=== PATIENT | female | born 1960 | race Caucasian/White ===

== ENCOUNTER 2017-02-15 23:39 | Inpatient (IN) | payer SELFPAY ==
[~2017-02-15] VITALS: Ht 172.7 cm; Wt 93.6 kg
[2017-02-16] MEDS: fentaNYL PF VIAL 100 MCG/2 ML VIAL IV PRN ×2 (00:19→01:49)
[2017-02-16] MEDS ORDERED: IV NORMAL SALINE 1000ML BAG 1,000 ML IV SCH (00:30)
[2017-02-16] MEDS ORDERED: ONDANSETRON PF 4 MG/2 ML VIAL. IV ONE (00:30)
[2017-02-16] MEDS ORDERED: FAMOTIDINE 20 MG/2 ML VIAL IVP ONE (00:30)
--- NOTE | 2017-02-16 00:51 | RAD ---
INDICATION: RUQ PAIN, PT ATE @7PM, COMPARISON: None. TECHNIQUE: Grayscale and color ultrasound images obtained through the abdomen. FINDINGS: Aorta/IVC: Incomplete visualization Pancreas: Largely obscured Liver: Mildly echogenic. Gallbladder: Gallstones are visualized Common Bile Duct: 9 mm Right Kidney: No hydronephrosis. IMPRESSION: There are some filling defects within the gallbladder which could be from gallstones. There is also mild dilation of the common bile duct. Distal obstructive process such as a stone or stricture is not excluded given the dilatation. If more complete characterization is desired MRCP could further evaluate. Liver is mildly echogenic. Nonspecific but can be seen with fatty infiltration. Electronically signed by: Frank Maddox MD (02/16/2017 12:48 AM) [id number]
[2017-02-16 00:56] LABS: BASO % 0 % (0-3); EOS % 2 % (0-3); HEMATOCRIT 38.7 % (36.0-47.0); HEMOGLOBIN 13.1 g/dL (12.0-15.5); LYMPH # 1.3 x10^3/uL (1.0-4.8); LYMPH % 16 % (24-48); MEAN CORPUSCULAR HEMOGLOBIN 30 pg (25-35); MEAN CORPUSCULAR HGB CONC 34 g/dL (31-37); MEAN CORPUSCULAR VOLUME 88 fL (79-100); MONO % 4 % (0-9); NEUT % 78 % (31-73); PLATELET COUNT 243 x10^3/uL (140-400); RED BLOOD COUNT 4.41 x10^6/uL (3.50-5.40); RED CELL DISTRIBUTION WIDTH 13.6 % (11.5-14.5)
--- NOTE | 2017-02-16 00:56 | PHYS DOC ---
Past Medical History Past Medical History: Diabetes-Type II, High Cholesterol, Hypertension, Hypothyroid Past Surgical History: Hysterectomy, Other Additional Past Surgical Histo: cardiac ablation Alcohol Use: None Drug Use: None Adult General Chief Complaint Chief Complaint: ABDOMINAL PAIN HPI HPI Patient is a 56 year old female who presents with complaint of epigastric and right upper quadrant abdominal pain. Patient states her symptoms started suddenly tonight after eating. Patient states that she ate at 5:30 PM this evening. Approximately one hour afterwards she started having heartburn symptoms. Patient states that she took Tums with mild relief. Patient states that one to 2 hours later she started having worsening symptoms and took 2 more times. Patient states that she did not get any relief. Approximately 30 minutes prior to arrival the patient started having worsening severe symptoms. Patient states that she was doubling over due to her pain. Patient rated as 10 out of 10 prior to arrival. Patient states currently is 8 out of 10 this patient was given fentanyl by EMS. The patient states that the pain is sharp and located in her upper abdomen and right upper quadrant. Patient denies any history of similar symptoms. Patient has history of diabetes mellitus type 2, hypertension , and hypothyroidism. Patient has had nausea but no vomiting associated with symptoms. Review of Systems Review of Systems Constitutional: Denies fever or chills [] Eyes: Denies change in visual acuity, redness, or eye pain [] HENT: Denies nasal congestion or sore throat [] Respiratory: Denies cough or shortness of breath [] Cardiovascular: Denies chest pain or edema [] GI: Abdominal pain, nausea, denies vomiting, bloody stools or diarrhea [] : Denies dysuria or hematuria [] Musculoskeletal: Denies back pain or joint pain [] Integument: Denies rash or skin lesions [] Neurologic: Denies headache, focal weakness or sensory changes [] Current Medications Current Medications Current Medications Medications (Trade) Dose Ordered Sig/Mary Start Time Stop Time Status Last Admin Dose Admin Famotidine (Pepcid) 20 mg 1X ONCE 02/16/17 00:30 02/16/17 00:31 DC 02/16/17 00:19 20 MG Fentanyl Citrate (Fentanyl 2ml Vial) 50 mcg PRN Q15MIN PRN 02/16/17 00:15 02/17/17 00:14 02/16/17 01:49 50 MCG Ondansetron HCl (Zofran) 4 mg 1X ONCE 02/16/17 00:30 02/16/17 00:31 DC 02/16/17 00:19 4 MG Sodium Chloride 1,000 ml @ 1,000 mls/hr Q1H 02/16/17 00:30 02/16/17 01:29 DC 02/16/17 00:19 1,000 MLS/HR Allergies Allergies Allergies Coded Allergies Type Severity Reaction Last Updated Verified No Known Drug Allergies 02/15/17 No Physical Exam Physical Exam Constitutional: Alert, afebrile, appears in moderate discomfort. [] HENT: Normocephalic, atraumatic, bilateral external ears normal, oropharynx moist, no oral exudates, nose normal. [] Eyes: PERRLA, EOMI, conjunctiva normal, no discharge. [] Neck: Normal range of motion, no tenderness, supple, no stridor. [] Cardiovascular:Heart rate regular rhythm, no murmur [] Lungs & Thorax: Bilateral breath sounds clear to auscultation [] Abdomen: Bowel sounds normal, soft, right upper quadrant tenderness to palpation with mild guarding, no rebound tenderness, no masses, no pulsatile masses. [] Skin: Warm, dry, no erythema, no rash. [] Back: No tenderness, no CVA tenderness. [] Extremities: No tenderness, no cyanosis, no clubbing, ROM intact, no edema. [] Neurologic: Alert and oriented X 3, normal motor function, normal sensory function, no focal deficits noted. [] Current Patient Data Vital Signs Vital Signs Date Time Temp Pulse Resp B/P (MAP) Pulse Ox O2 Delivery O2 Flow Rate FiO2 02/16/17 01:14 75 14 128/60 (82) 96 Room Air 02/15/17 23:40 97.3 97.3 Lab Values Laboratory Tests Test 02/16/17 00:01 02/16/17 00:05 Urine Collection Type Unknown Urine Color Yellow Urine Clarity Clear Urine pH 6.0 Urine Specific [place] >=1.030 Urine Protein Negative mg/dL (NEG-TRACE) Urine Glucose (UA) >=1000 mg/dL (NEG) Urine Ketones (Stick) Negative mg/dL (NEG) Urine Blood Negative (NEG) Urine Nitrite Negative (NEG) Urine Bilirubin Negative (NEG) Urine Urobilinogen Dipstick 0.2 mg/dL (0.2 mg/dL) Urine Leukocyte Esterase Small (NEG) Urine RBC Occ /HPF (0-2) Urine WBC 20-40 /HPF (0-4) Urine Squamous Epithelial Cells Mod /LPF Urine Bacteria Few /HPF (0-FEW) Urine Mucus Mod /LPF White Blood Count 8.0 x10^3/uL (4.0-11.0) Red Blood Count 4.41 x10^6/uL (3.50-5.40) Hemoglobin 13.1 g/dL (12.0-15.5) Hematocrit 38.7 % (36.0-47.0) Mean Corpuscular Volume 88 fL (79-100) Mean Corpuscular Hemoglobin 30 pg (25-35) Mean Corpuscular Hemoglobin Concent 34 g/dL (31-37) Red Cell Distribution Width 13.6 % (11.5-14.5) Platelet Count 243 x10^3/uL (140-400) Neutrophils (%) (Auto) 78 % (31-73) H Lymphocytes (%) (Auto) 16 % (24-48) L Monocytes (%) (Auto) 4 % (0-9) Eosinophils (%) (Auto) 2 % (0-3) Basophils (%) (Auto) 0 % (0-3) Neutrophils # (Auto) 6.2 x10^3uL (1.8-7.7) Lymphocytes # (Auto) 1.3 x10^3/uL (1.0-4.8) Monocytes # (Auto) 0.3 x10^3/uL (0.0-1.1) Eosinophils # (Auto) 0.1 x10^3/uL (0.0-0.7) Basophils # (Auto) 0.0 x10^3/uL (0.0-0.2) Sodium Level 139 mmol/L (136-145) Potassium Level 3.6 mmol/L (3.5-5.1) Chloride Level 102 mmol/L (98-107) Carbon Dioxide Level 27 mmol/L (21-32) Anion Gap 10 (6-14) Blood Urea Nitrogen 20 mg/dL (7-20) Creatinine 0.8 mg/dL (0.6-1.0) Estimated GFR (Cockcroft-Gault) 74.2 BUN/Creatinine Ratio 25 (6-20) H Glucose Level 225 mg/dL (70-99) H Calcium Level 10.0 mg/dL (8.5-10.1) Total Bilirubin 0.4 mg/dL (0.2-1.0) Aspartate Amino Transferase (AST) 74 U/L (15-37) H Alanine Aminotransferase (ALT) 59 U/L (14-59) Alkaline Phosphatase 70 U/L (46-116) Total Protein 6.4 g/dL (6.4-8.2) Albumin 3.5 g/dL (3.4-5.0) Albumin/Globulin Ratio 1.2 (1.0-1.7) Lipase 266 U/L (73-393) Laboratory Tests 02/16/17 00:05 Laboratory Tests 02/16/17 00:05 EKG EKG Interpreted by me: Heart rate 77, sinus rhythm, normal intervals, normal axis, no acute ST/T-wave abnormalities present [] Radiology/Procedures Radiology/Procedures [facility] [address] [place] [address] IMAGING REPORT Signed PATIENT: MICK PONCE ACCOUNT: [id number] : 1960 LOCATION: ER AGE: 56 SEX: F EXAM STATUS: REG ER ORD. PHYSICIAN: ALBARO LEW MD REASON: right upper quadrant abdominal pain PROCEDURE: ABDOMEN LTD INDICATION: RUQ PAIN, PT ATE @7PM, COMPARISON: None. TECHNIQUE: Grayscale and color ultrasound images obtained through the abdomen. FINDINGS: Aorta/IVC: Incomplete visualization Pancreas: Largely obscured Liver: Mildly echogenic. Gallbladder: Gallstones are visualized Common Bile Duct: 9 mm Right Kidney: No hydronephrosis. IMPRESSION: There are some filling defects within the gallbladder which could be from gallstones. There is also mild dilation of the common bile duct. Distal obstructive process such as a stone or stricture is not excluded given the dilatation. If more complete characterization is desired MRCP could further evaluate. Liver is mildly echogenic. Nonspecific but can be seen with fatty infiltration. Electronically signed by: Sylvain Hannah MD (02/16/2017 12:48 AM) [id number] DICTATED and SIGNED BY: SYLVAIN HANNAH MD DATE: 02/16/17 0045 CC: ALBARO LEW MD; NO PCP ~ [] Course & Med Decision Making Course & Med Decision Making Pertinent Labs and Imaging studies reviewed. (See chart for details) The patient was given IV fentanyl in the emergency department with temporary relief of symptoms. Patient states however that her pain has come back and is as severe as it was earlier. The patient's ultrasound shows evidence of cholelithiasis and common bile duct dilation suggesting possible choledocholithiasis. Due to persistent pain symptoms, the patient will require admission to the hospital for further treatment. Patient admitted to Dr. Carranza. A consult was placed to Dr. Pond of gastroenterology and Dr. Del Rio of general surgery to follow with patient in hospital. [] Dragon Disclaimer Dragon Disclaimer This electronic medical record was generated, in whole or in part, using a voice recognition dictation system. Departure Departure Impression: Primary Impression: Symptomatic cholelithiasis Additional Impression: Common bile duct dilation Disposition: ADMITTED INPATIENT Admitting Physician: Other Condition: STABLE Referrals: NO PCP (PCP) Problem Qualifiers ALBARO LEW MD Feb 16, 2017 00:56
[2017-02-16 00:58] LABS: BILIRUBIN,URINE NEGATIVE (NEG); GLUCOSE,URINE >=1000 mg/dL (NEG); NITRITE,URINE NEGATIVE (NEG); PROTEIN,URINE NEGATIVE (NEG-TRACE); UROBILINOGEN,URINE 0.2 mg/dL (0.2 mg/dL)
[2017-02-16 01:25] LABS: RBC,URINE OCC /HPF (0-2); WBC,URINE 20-40 /HPF (0-4)
[2017-02-16 01:26] LABS: BACTERIA,URINE FEW /HPF (0-FEW); SQUAMOUS EPITHELIAL CELL,UR MOD /LPF
[2017-02-16 01:38] LABS: CREATININE 0.8 mg/dL (0.6-1.0); GFR 74.2; POTASSIUM 3.6 mmol/L (3.5-5.1)
[2017-02-16 01:44] LABS: ALBUMIN 3.5 g/dL (3.4-5.0); ALBUMIN/GLOBULIN RATIO 1.2 (1.0-1.7); TOTAL BILIRUBIN 0.4 mg/dL (0.2-1.0); TOTAL PROTEIN 6.4 g/dL (6.4-8.2)
[2017-02-16] MEDS ORDERED: MORPHINE SULFATE 4 MG/ML DISP.SYRIN. IV PRN ×2 (02:15→10:30)
[2017-02-16] MEDS ORDERED: ONDANSETRON PF 4 MG/2 ML VIAL. IV PRN ×3 (02:15→11:45)
[2017-02-16 02:25] VITALS: BP 146/69
[2017-02-16] MEDS: IV NORMAL SALINE 1000ML BAG 1,000 ML IV SCH ×3 (02:48→17:34)
[2017-02-16] MEDS ORDERED: METF850T2 PO (03:57)
[2017-02-16] MEDS ORDERED: LOVA20TA2 PO (03:57)
[2017-02-16] MEDS ORDERED: LEVO50TA5 PO (03:57)
[2017-02-16] MEDS ORDERED: LISI10TA2 PO (03:57)
--- NOTE | 2017-02-16 06:57 | EKG ---
[facility] [address] [place] [address] Test Date: 2017-02-15 Test Time: 23:46:52 Pat Name: MICK PONCE Department: Room: 444 1 Gender: F [employer] Operator: : 1960 Requested By: OSIRIS CHAPARRO Order Number: [id number] Reading MD: Measurements Intervals [place] Rate: 77 P: 28 DC: 222 QRS: 4 QRSD: 100 T: 22 QT: 386 QTc: 439 Interpretive Statements SINUS RHYTHM PROLONGED DC INTERVAL QRS(T) CONTOUR ABNORMALITY CONSIDER ANTEROSEPTAL MYOCARDIAL DAMAGE CONSISTENT WITH INFERIOR INFARCT PROBABLY OLD RI6.01 Unconfirmed report No previous ECG available for comparison
[2017-02-16 07:00] VITALS: BP 102/47
--- NOTE | 2017-02-16 09:33 | PDOC2 ---
GI CONSULT Reason For Consult: Cholelithiasis, dilated CBD HPI: HPI: 56 y/o female admitted through ER. Reports acute onset of epigastric and RUQ pain around 7:30 last night. Ate dinner at 5:30, a lot of onions, though indigestion. Symptoms not improved w/ Tums. Associated w/ nausea/retching and a "full" feeling "like needed to burp." Has had some looser stools x 3 days as well. Denies reflux/heartburn, hematochezia, melena, weight loss. No previous EGD, did have normal colonoscopy at age 50. No NSAID use. Labs unremarkable except AST 74. US showed gallstones and CBD of 9mm. PMH: PMH: DM, HTN, HLD, thyroid nodule s/p ablation now w/ hypothyroidism, partial hysterectomy FH: Family History: Cancer (liver - mother, lung - father) Social History: Smoke: <1 pack per day ALCOHOL: none Drugs: None ROS: GEN: Denies fevers, chills, sweats HEENT: Denies blurred vision, sore throat CV: Denies chest pain RESP: Denies shortness of air, cough GI: Per HPI : Denies hematuria, dysuria ENDO: Denies weight changes NEURO: Denies confusion, dizziness MSK: Denies weakness, joint pain/swelling SKIN: Denies jaundice, pruritus Vitals: Vitals: Vital Signs Date Time Temp Pulse Resp B/P (MAP) Pulse Ox O2 Delivery O2 Flow Rate FiO2 02/16/17 07:00 97.9 66 18 102/47 (65) 94 Room Air 97.9 Labs: Labs: Laboratory Tests Test 02/16/17 00:01 02/16/17 00:05 Urine Collection Type Unknown Urine Color Yellow Urine Clarity Clear Urine pH 6.0 Urine Specific [place] >=1.030 Urine Protein Negative mg/dL (NEG-TRACE) Urine Glucose (UA) >=1000 mg/dL (NEG) Urine Ketones (Stick) Negative mg/dL (NEG) Urine Blood Negative (NEG) Urine Nitrite Negative (NEG) Urine Bilirubin Negative (NEG) Urine Urobilinogen Dipstick 0.2 mg/dL (0.2 mg/dL) Urine Leukocyte Esterase Small (NEG) Urine RBC Occ /HPF (0-2) Urine WBC 20-40 /HPF (0-4) Urine Squamous Epithelial Cells Mod /LPF Urine Bacteria Few /HPF (0-FEW) Urine Mucus Mod /LPF White Blood Count 8.0 x10^3/uL (4.0-11.0) Red Blood Count 4.41 x10^6/uL (3.50-5.40) Hemoglobin 13.1 g/dL (12.0-15.5) Hematocrit 38.7 % (36.0-47.0) Mean Corpuscular Volume 88 fL (79-100) Mean Corpuscular Hemoglobin 30 pg (25-35) Mean Corpuscular Hemoglobin Concent 34 g/dL (31-37) Red Cell Distribution Width 13.6 % (11.5-14.5) Platelet Count 243 x10^3/uL (140-400) Neutrophils (%) (Auto) 78 % (31-73) Lymphocytes (%) (Auto) 16 % (24-48) Monocytes (%) (Auto) 4 % (0-9) Eosinophils (%) (Auto) 2 % (0-3) Basophils (%) (Auto) 0 % (0-3) Neutrophils # (Auto) 6.2 x10^3uL (1.8-7.7) Lymphocytes # (Auto) 1.3 x10^3/uL (1.0-4.8) Monocytes # (Auto) 0.3 x10^3/uL (0.0-1.1) Eosinophils # (Auto) 0.1 x10^3/uL (0.0-0.7) Basophils # (Auto) 0.0 x10^3/uL (0.0-0.2) Sodium Level 139 mmol/L (136-145) Potassium Level 3.6 mmol/L (3.5-5.1) Chloride Level 102 mmol/L (98-107) Carbon Dioxide Level 27 mmol/L (21-32) Anion Gap 10 (6-14) Blood Urea Nitrogen 20 mg/dL (7-20) Creatinine 0.8 mg/dL (0.6-1.0) Estimated GFR (Cockcroft-Gault) 74.2 BUN/Creatinine Ratio 25 (6-20) Glucose Level 225 mg/dL (70-99) Calcium Level 10.0 mg/dL (8.5-10.1) Total Bilirubin 0.4 mg/dL (0.2-1.0) Aspartate Amino Transf (AST/SGOT) 74 U/L (15-37) Alanine Aminotransferase (ALT/SGPT) 59 U/L (14-59) Alkaline Phosphatase 70 U/L (46-116) Total Protein 6.4 g/dL (6.4-8.2) Albumin 3.5 g/dL (3.4-5.0) Albumin/Globulin Ratio 1.2 (1.0-1.7) Lipase 266 U/L (73-393) Allergies: Coded Allergies: No Known Drug Allergies (Unverified , 02/15/17) Medications: Current Medications Medications (Trade) Dose Ordered Sig/Mary Route PRN Reason Start Time Stop Time Status Last Admin Dose Admin Fentanyl Citrate (Fentanyl 2ml Vial) 50 mcg PRN Q15MIN PRN IV PAIN GREATER THAN 3/10 02/16/17 00:15 02/17/17 00:14 02/16/17 01:49 Sodium Chloride 1,000 ml @ 1,000 mls/hr Q1H IV 02/16/17 00:30 02/16/17 01:29 DC 02/16/17 00:19 Ondansetron HCl (Zofran) 4 mg 1X ONCE IV 02/16/17 00:30 02/16/17 00:31 DC 02/16/17 00:19 Famotidine (Pepcid) 20 mg 1X ONCE IVP 02/16/17 00:30 02/16/17 00:31 DC 02/16/17 00:19 Sodium Chloride 1,000 ml @ 125 mls/hr Q8H IV 02/16/17 02:30 02/17/17 02:29 02/16/17 02:48 Imaging: Imaging: RUQ US IMPRESSION: There are some filling defects within the gallbladder which could be from gallstones. There is also mild dilation of the common bile duct. Distal obstructive process such as a stone or stricture is not excluded given the dilatation. If more complete characterization is desired MRCP could further evaluate. Liver is mildly echogenic. Nonspecific but can be seen with fatty infiltration. PE: GEN: NAD HEENT: Atraumatic, PERRL LUNGS: CTAB HEART: RRR ABD: NABS, S/ND, not particularly tender currently EXTREMITY: No edema SKIN: No rashes, no jaundice NEURO/PSYCH: A & O 3 A/P: A/P: RUQ/epigastric pain, nausea Cholelithiasis, ?dilated CBD w/ normal LFTs CRC screen -normal colonoscopy age 50 -- Surgery to see. Consider ERCP if abnormal IOC. RICKY ABREU Feb 16, 2017 09:33
[2017-02-16 10:00] VITALS: BP 102/51
[2017-02-16] MEDS ORDERED: hydrALAZINE 20 MG/ML VIAL. IVP PRN (10:30)
[2017-02-16] MEDS ORDERED: traMADol 50 MG TABLET PO PRN (10:30)
[2017-02-16] MEDS ORDERED: ACETAMINOPHEN 325 MG TABLET. PO PRN (10:30)
[2017-02-16] MEDS ORDERED: DOCUSATE SODIUM 100 MG CAPSULE. PO PRN (10:30)
[2017-02-16] MEDS ORDERED: DEXTROSE 50% 25 GM / 50ML DISP.SYRIN. IV PRN ×2 (10:30→16:00)
[2017-02-16] MEDS ORDERED: PIPERACILLIN/TAZOBACTAM 3.375 GM in IV NORMAL SALINE 50ML 50 ML IV ONE (11:30)
[2017-02-16] MEDS: INSULIN ASPART 300 UNITS/3 ML INSULN.PEN SQ SCH ×2 (11:33→17:00)
[2017-02-16] MEDS ORDERED: IV RINGERS,LACTATED 1000ML 1,000 ML IV SCH (11:42)
[2017-02-16] MEDS ORDERED: PROCHLORPERAZINE 10 MG/2 ML VIAL. IV PRN (11:45)
[2017-02-16] MEDS ORDERED: fentaNYL PF VIAL 100 MCG/2 ML VIAL IV PRN ×2 (11:45)
[2017-02-16] MEDS ORDERED: HYDROmorphone 2 MG/ML VIAL IV PRN ×2 (11:45→16:00)
[2017-02-16] MEDS ORDERED: MORPHINE SULFATE 2 MG/ML DISP.SYRIN. IV PRN (11:45)
[2017-02-16] MEDS ORDERED: LIDOCAINE 1% 1 ML SYRINGE. ID PRN (11:45)
[2017-02-16] MEDS ORDERED: fentaNYL PF VIAL 100 MCG/2 ML VIAL ONE ×2 (12:32→14:02)
[2017-02-16] MEDS ORDERED: ROCURONIUM 100 MG/10 ML VIAL. ONE (12:32)
[2017-02-16] MEDS ORDERED: NEOSTIGMINE 10 MG/10 ML VIAL. ONE ×2 (12:33→15:11)
[2017-02-16] MEDS ORDERED: PROPOFOL 20 ML IV ONE (12:33)
[2017-02-16] MEDS ORDERED: DESFLURANE 61 TO 120 MINUTES IH ONE (12:33)
[2017-02-16] MEDS ORDERED: LIDOCAINE 2% PF Vial for OR 5 ML VIAL. ONE (12:34)
[2017-02-16] MEDS ORDERED: DEXAMETHASONE SOD PHOS 20 MG/5 ML VIAL. ONE (12:34)
[2017-02-16] MEDS ORDERED: ONDANSETRON PF 4 MG/2 ML VIAL. ONE (12:34)
--- NOTE | 2017-02-16 13:01 | PDOC1 ---
History and Physical Date of Admission Date of Admission 02/16/17 Identification/Chief Complaint Chief Complaint RUQ pain Problems: Source Source: Chart review, Patient History of Present Illness History of Present Illness HPI HPI Patient is a 56 year old female with HTN, dm2, HYPOthyrodism, came to ER for abd pain x1d. pt never had this pain before. She started to have RUQ pain last night, after eating, with N, no vomiting, also had subjective fever, chills, no T checked. BM usually every other day, now has been having loose BM daily x3ds. The pain feels achy, constant, 10/10, no radiation. US showed cholelithiasis. Past Medical History Past Medical History htn, dm hypothyroidism Past Surgical History Past Surgical History cardiac ablation Past Surgical History: Hysterectomy Family History Family History: Hypertension Social History Smoke: <1 pack per day ALCOHOL: none Drugs: None Current Problem List Problem List Problems Medical Problems: (1) Common bile duct dilation Status: Acute (2) Symptomatic cholelithiasis Status: Acute Current Medications Current Medications Current Medications Medications (Trade) Dose Ordered Sig/Mary Start Time Stop Time Status Last Admin Dose Admin Acetaminophen (Tylenol) 650 mg PRN Q6HRS PRN 02/16/17 10:30 Desflurane (Suprane) 60 ml STK-MED ONCE 02/16/17 12:33 02/16/17 12:34 DC Dexamethasone Sodium Phosphate (Decadron) 20 mg STK-MED ONCE 02/16/17 12:34 02/16/17 12:35 DC Dextrose (Dextrose 50%-Water Syringe) 12.5 gm PRN Q15MIN PRN 02/16/17 10:30 Docusate Sodium (Colace) 100 mg PRN DAILY PRN 02/16/17 10:30 Famotidine (Pepcid) 20 mg QHS 02/16/17 21:00 Fentanyl Citrate (Fentanyl 2ml Vial) 100 mcg STK-MED ONCE 02/16/17 12:32 02/16/17 12:33 DC Hydralazine HCl (Apresoline) 10 mg PRN Q4HRS PRN 02/16/17 10:30 Hydromorphone HCl (Dilaudid) 0.5 mg PRN Q10MIN PRN 02/16/17 11:45 02/17/17 11:44 Insulin Aspart (NovoLOG) 0-9 UNITS TIDWMEALS 02/16/17 12:00 Levothyroxine Sodium 25 mcg/ Sodium Chloride 5 ml @ 100 mls/hr DAILY 02/17/17 09:00 Lidocaine HCl (Lidocaine Pf 2% Vial) 5 ml STK-MED ONCE 02/16/17 12:34 02/16/17 12:35 DC Morphine Sulfate 1 mg PRN Q10MIN PRN 02/16/17 11:45 02/17/17 11:44 Neostigmine Methylsulfate (Bloxiverz) 10 mg STK-MED ONCE 02/16/17 12:33 02/16/17 12:34 DC Ondansetron HCl (Zofran) 4 mg STK-MED ONCE 02/16/17 12:34 02/16/17 12:35 DC Piperacillin Sod/ Tazobactam Sod 3.375 gm/Sodium Chloride 50 ml @ 100 mls/hr 1X ONCE 02/16/17 11:30 02/16/17 11:59 DC 02/16/17 11:30 100 MLS/HR Prochlorperazine Edisylate (Compazine) 5 mg PACU PRN PRN 02/16/17 11:45 02/17/17 11:44 Propofol 20 ml @ As Directed STK-MED ONCE 02/16/17 12:33 02/16/17 12:34 DC Ringer's Solution 1,000 ml @ 30 mls/hr Q24H 02/16/17 11:42 02/16/17 23:41 Rocuronium Almond (Zemuron) 100 mg STK-MED ONCE 02/16/17 12:32 02/16/17 12:33 DC Sodium Chloride 1,000 ml @ 125 mls/hr Q8H 02/16/17 02:30 02/17/17 02:29 02/16/17 10:04 125 MLS/HR Tramadol HCl (Ultram) 50 mg PRN Q6HRS PRN 02/16/17 10:30 Allergies Allergies Allergies Coded Allergies Type Severity Reaction Last Updated Verified No Known Drug Allergies 02/15/17 No ROS Review of System CONSTITUTIONAL: No fever or chills EYES: No recent changes SKIN: No rash or itching CARDIOVASCULAR: No chest pain, syncope, palpitations, or edema RESPIRATORY: No SOB or cough GASTROINTESTINAL: No nausea, vomiting or abdominal pain NEUROLOGICAL: No headaches or weakness ENDOCRINE: No cold or heat intolerance GENITOURINARY: No urgency or frequency of urination MUSCULOSKELETAL: No back pain or joint pain LYMPHATICS: No enlarged lymph nodes PSYCHIATRIC: No anxiety or depression Physical Exam Physical Exam GEN.: No apparent distress. Alert and oriented. HEENT: Head is normocephalic, atraumatic NECK: Supple. LUNGS: Clear to auscultation. HEART: RRR, S1, S2 present. Peripheral pulses intact ABDOMEN: Soft, Positive bowel sounds. RUQ T[place]derness, + wood sign. no guarding or rebound EXTREMITIES: Without any cyanosis. NEUROLOGIC: Normal speech, normal tone PSYCHIATRIC: Normal affect, normal mood. SKIN: No ulcerations Vitals Vitals Vital Signs Date Time Temp Pulse Resp B/P (MAP) Pulse Ox O2 Delivery O2 Flow Rate FiO2 02/16/17 10:00 97.5 65 18 102/51 (68) 96 Room Air 97.5 Labs Labs Laboratory Tests Test 02/16/17 00:01 02/16/17 00:05 02/16/17 11:33 Urine Collection Type Unknown Urine Color Yellow Urine Clarity Clear Urine pH 6.0 Urine Specific [place] >=1.030 Urine Protein Negative mg/dL (NEG-TRACE) Urine Glucose (UA) >=1000 mg/dL (NEG) Urine Ketones (Stick) Negative mg/dL (NEG) Urine Blood Negative (NEG) Urine Nitrite Negative (NEG) Urine Bilirubin Negative (NEG) Urine Urobilinogen Dipstick 0.2 mg/dL (0.2 mg/dL) Urine Leukocyte Esterase Small (NEG) Urine RBC Occ /HPF (0-2) Urine WBC 20-40 /HPF (0-4) Urine Squamous Epithelial Cells Mod /LPF Urine Bacteria Few /HPF (0-FEW) Urine Mucus Mod /LPF White Blood Count 8.0 x10^3/uL (4.0-11.0) Red Blood Count 4.41 x10^6/uL (3.50-5.40) Hemoglobin 13.1 g/dL (12.0-15.5) Hematocrit 38.7 % (36.0-47.0) Mean Corpuscular Volume 88 fL (79-100) Mean Corpuscular Hemoglobin 30 pg (25-35) Mean Corpuscular Hemoglobin Concent 34 g/dL (31-37) Red Cell Distribution Width 13.6 % (11.5-14.5) Platelet Count 243 x10^3/uL (140-400) Neutrophils (%) (Auto) 78 % (31-73) Lymphocytes (%) (Auto) 16 % (24-48) Monocytes (%) (Auto) 4 % (0-9) Eosinophils (%) (Auto) 2 % (0-3) Basophils (%) (Auto) 0 % (0-3) Neutrophils # (Auto) 6.2 x10^3uL (1.8-7.7) Lymphocytes # (Auto) 1.3 x10^3/uL (1.0-4.8) Monocytes # (Auto) 0.3 x10^3/uL (0.0-1.1) Eosinophils # (Auto) 0.1 x10^3/uL (0.0-0.7) Basophils # (Auto) 0.0 x10^3/uL (0.0-0.2) Sodium Level 139 mmol/L (136-145) Potassium Level 3.6 mmol/L (3.5-5.1) Chloride Level 102 mmol/L (98-107) Carbon Dioxide Level 27 mmol/L (21-32) Anion Gap 10 (6-14) Blood Urea Nitrogen 20 mg/dL (7-20) Creatinine 0.8 mg/dL (0.6-1.0) Estimated GFR (Cockcroft-Gault) 74.2 BUN/Creatinine Ratio 25 (6-20) Glucose Level 225 mg/dL (70-99) Calcium Level 10.0 mg/dL (8.5-10.1) Total Bilirubin 0.4 mg/dL (0.2-1.0) Aspartate Amino Transf (AST/SGOT) 74 U/L (15-37) Alanine Aminotransferase (ALT/SGPT) 59 U/L (14-59) Alkaline Phosphatase 70 U/L (46-116) Total Protein 6.4 g/dL (6.4-8.2) Albumin 3.5 g/dL (3.4-5.0) Albumin/Globulin Ratio 1.2 (1.0-1.7) Lipase 266 U/L (73-393) Glucose (Fingerstick) 100 mg/dL (70-99) Laboratory Tests Test 02/16/17 00:01 02/16/17 00:05 02/16/17 11:33 Urine Collection Type Unknown Urine Color Yellow Urine Clarity Clear Urine pH 6.0 Urine Specific [place] >=1.030 Urine Protein Negative mg/dL (NEG-TRACE) Urine Glucose (UA) >=1000 mg/dL (NEG) Urine Ketones (Stick) Negative mg/dL (NEG) Urine Blood Negative (NEG) Urine Nitrite Negative (NEG) Urine Bilirubin Negative (NEG) Urine Urobilinogen Dipstick 0.2 mg/dL (0.2 mg/dL) Urine Leukocyte Esterase Small (NEG) Urine RBC Occ /HPF (0-2) Urine WBC 20-40 /HPF (0-4) Urine Squamous Epithelial Cells Mod /LPF Urine Bacteria Few /HPF (0-FEW) Urine Mucus Mod /LPF White Blood Count 8.0 x10^3/uL (4.0-11.0) Red Blood Count 4.41 x10^6/uL (3.50-5.40) Hemoglobin 13.1 g/dL (12.0-15.5) Hematocrit 38.7 % (36.0-47.0) Mean Corpuscular Volume 88 fL (79-100) Mean Corpuscular Hemoglobin 30 pg (25-35) Mean Corpuscular Hemoglobin Concent 34 g/dL (31-37) Red Cell Distribution Width 13.6 % (11.5-14.5) Platelet Count 243 x10^3/uL (140-400) Neutrophils (%) (Auto) 78 % (31-73) Lymphocytes (%) (Auto) 16 % (24-48) Monocytes (%) (Auto) 4 % (0-9) Eosinophils (%) (Auto) 2 % (0-3) Basophils (%) (Auto) 0 % (0-3) Neutrophils # (Auto) 6.2 x10^3uL (1.8-7.7) Lymphocytes # (Auto) 1.3 x10^3/uL (1.0-4.8) Monocytes # (Auto) 0.3 x10^3/uL (0.0-1.1) Eosinophils # (Auto) 0.1 x10^3/uL (0.0-0.7) Basophils # (Auto) 0.0 x10^3/uL (0.0-0.2) Sodium Level 139 mmol/L (136-145) Potassium Level 3.6 mmol/L (3.5-5.1) Chloride Level 102 mmol/L (98-107) Carbon Dioxide Level 27 mmol/L (21-32) Anion Gap 10 (6-14) Blood Urea Nitrogen 20 mg/dL (7-20) Creatinine 0.8 mg/dL (0.6-1.0) Estimated GFR (Cockcroft-Gault) 74.2 BUN/Creatinine Ratio 25 (6-20) Glucose Level 225 mg/dL (70-99) Calcium Level 10.0 mg/dL (8.5-10.1) Total Bilirubin 0.4 mg/dL (0.2-1.0) Aspartate Amino Transf (AST/SGOT) 74 U/L (15-37) Alanine Aminotransferase (ALT/SGPT) 59 U/L (14-59) Alkaline Phosphatase 70 U/L (46-116) Total Protein 6.4 g/dL (6.4-8.2) Albumin 3.5 g/dL (3.4-5.0) Albumin/Globulin Ratio 1.2 (1.0-1.7) Lipase 266 U/L (73-393) Glucose (Fingerstick) 100 mg/dL (70-99) VTE Prophylaxis Ordered VTE Prophylaxis Devices: Yes VTE Pharmacological Prophylaxi: No Assessment/Plan Assessment/Plan abd pain with cholelithiasis dm2 htn hld hypothyroidism tobaccoism plan; sx pending fu with gi npo ivf pain control hold po meds dvt ppx tmr gi ppx RONNY HUDSON MD Feb 16, 2017 13:01
[2017-02-16] MEDS ORDERED: IOHEXOL 300 MG/ML 50 ML VIAL. ONE (13:51)
[2017-02-16] MEDS ORDERED: BUPIVAC MPF-EPI 0.5%-1:200000 30 ML VIAL. ONE (13:51)
[2017-02-16] MEDS ORDERED: GLUCAGON,HUMAN RECOMBINANT 1 MG/ML VIAL. ONE (13:51)
[2017-02-16] MEDS ORDERED: SURGICEL HEMOSTAT 4X8 EACH. ONE (13:51)
[2017-02-16] MEDS ORDERED: DESFLURANE > 120 MINUTES IH ONE (14:06)
[2017-02-16] MEDS ORDERED: MIDAZOLAM HCL/PF 2 MG/2 ML VIAL. ONE (14:25)
[2017-02-16] MEDS ORDERED: GLYCOPYRROLATE 1 MG/5 ML VIAL. ONE (15:11)
--- NOTE | 2017-02-16 15:18 | RAD ---
Indication intraoperative cholangiogram. Status post cholecystectomy. Assess for potential complication. Evaluate for potential choledocholithiasis. For members of the Department of surgery fluoroscopy was provided. 4 spot images were obtained with the C-arm. Fluoroscopy time associated with the imaging was 25 seconds. The common bile and common hepatic ducts appear slightly prominent. There is slight narrowing of the distal common bile duct which may reflect spasm. Other etiologies are excluded. A small amount of contrast is seen in the duodenum. Definite choledocholithiasis is not seen. IMPRESSION: Mildly prominent common hepatic, common bile duct and intrahepatic radicles. Mild narrowing of the distal common bile duct may reflect spasm. Other etiologies are not excluded. No definite choledocholithiasis
[2017-02-16] MEDS ORDERED: KETOROLAC 60 MG/2 ML INJ FOR OR. ONE (15:27)
[2017-02-16] MEDS ORDERED: SEVOFLURANE 61 TO 120 MINUTES. IH ONE (15:27)
--- NOTE | 2017-02-16 15:46 | PDOC ---
BRIEF OPERATIVE NOTE Date: Feb 16, 2017 Pre-Op Diagnosis sx cholelithiasis Post-Op Diagnosis same Procedure Performed l/s mirian with grams Surgeon Darryl Experience Specialist Rajani CABRERA Anesthesia Type: General Blood Loss 20cc IV Fluid 800cc Specimens Obtained GB Findings supple GB with some omental adhesions, LUQ > LLQ omental adhesions Complications none OPerative Note WK # [id number] JOHN MUNGUIA MD Feb 16, 2017 15:46
[2017-02-16] MEDS ORDERED: oxyCODONE/APAP 5/325 1 TAB TABLET PO PRN ×2 (16:00)
[2017-02-16] MEDS ORDERED: 0.9 % SODIUM CHLORIDE 10 ML DISP.SYRIN. IV PRN (16:00)
--- NOTE | 2017-02-16 16:42 | PDOC2 ---
CONSULT Date of Consult Date of Consult DATE: 02/16/17 TIME: 12:00 Reason for Consult Reason for Consult: RUQ pain Referring Physician Referring Physician: CHELSEY Identification/Chief Complaint Chief Complaint RUQ pain, nausea Problems: Source Source: Chart review, Patient History of Present Illness Reason for Visit: Kristie is a 56 yo female with acute onset of RUQ pain and nausea last noc after dinner. No similar previous episodes. US shows stones and a generous (9mm) CBD. We are asked to see for same Past Medical History Cardiovascular: HTN Hepatobiliary: Cholelithiasis Endocrine: Diabetes, Hypothyroidism Past Surgical History Past Surgical History: Hysterectomy Family History Family History: Hypertension Social History <1 pack per day ALCOHOL: none Drugs: None Current Problem List Problem List Problems Medical Problems: (1) Common bile duct dilation Status: Acute (2) Symptomatic cholelithiasis Status: Acute Current Medications Current Medications Current Medications Fentanyl Citrate (Fentanyl 2ml Vial) 50 mcg PRN Q15MIN PRN IV PAIN GREATER THAN 3/10 Last administered on 02/16/17 01:49; Start 02/16/17 at 00:15; Stop 04/26 at 00:14 Sodium Chloride 1,000 ml @ 1,000 mls/hr Q1H IV Last administered on 02/16/17 00:19; Start 02/16/17 at 00:30; Stop 02/16/17 at 01:29; Status DC Ondansetron HCl (Zofran) 4 mg 1X ONCE IV Last administered on 02/16/17 00:19; Start 02/16/17 at 00:30; Stop 02/16/17 at 00:31; Status DC Famotidine (Pepcid) 20 mg 1X ONCE IVP Last administered on 02/16/17 00:19; Start 02/16/17 at 00:30; Stop 02/16/17 at 00:31; Status DC Ondansetron HCl (Zofran) 4 mg PRN Q8HRS PRN IV NAUSEA/VOMITING; Start 02/16/17 at 02:15; Stop 02/17/17 at 02:14 Morphine Sulfate 4 mg PRN Q2HR PRN IV SEVERE PAIN; Start 02/16/17 at 02:15; Stop 02/17/17 at 02:14 Sodium Chloride 1,000 ml @ 125 mls/hr Q8H IV Last administered on 02/16/17 10: 04; Start 02/16/17 at 02:30; Stop 02/17/17 at 02:29 Acetaminophen (Tylenol) 650 mg PRN Q6HRS PRN PO FEVER; Start 02/16/17 at 10:30 Ondansetron HCl (Zofran) 4 mg PRN Q6HRS PRN IV NAUSEA/VOMITING; Start 02/16/17 at 10:30 Morphine Sulfate 2 mg PRN Q2HR PRN IV PAIN; Start 02/16/17 at 10:30 Tramadol HCl (Ultram) 50 mg PRN Q6HRS PRN PO PAIN; Start 02/16/17 at 10:30 Hydralazine HCl (Apresoline) 10 mg PRN Q4HRS PRN IVP ELEVATED BP, SEE COMMENTS ; Start 02/16/17 at 10:30 Docusate Sodium (Colace) 100 mg PRN DAILY PRN PO CONSTIPATION; Start 02/16/17 at 10:30 Famotidine (Pepcid) 20 mg QHS IVP ; Start 02/16/17 at 21:00 Levothyroxine Sodium 25 mcg/ Sodium Chloride 5 ml @ 100 mls/hr DAILY IVP ; Start 02/17/17 at 09:00 Insulin Aspart (NovoLOG) 0-9 UNITS TIDWMEALS SQ ; Start 02/16/17 at 12:00 Dextrose (Dextrose 50%-Water Syringe) 12.5 gm PRN Q15MIN PRN IV SEE COMMENTS; Start 02/16/17 at 10:30 Piperacillin Sod/ Tazobactam Sod 3.375 gm/Sodium Chloride 50 ml @ 100 mls/hr 1X ONCE IV Last administered on 02/16/17 11:30; Start 02/16/17 at 11:30; Stop 02/16/17 at 11:59; Status DC Ondansetron HCl (Zofran) 4 mg PRN Q6HRS PRN IV NAUSEA/VOMITING; Start 02/16/17 at 11:45; Stop 02/17/17 at 11:44 Fentanyl Citrate (Fentanyl 2ml Vial) 25 mcg PRN Q5MIN PRN IV MILD PAIN; Start 02/16/17 at 11:45; Stop 02/17/17 at 11:44 Fentanyl Citrate (Fentanyl 2ml Vial) 50 mcg PRN Q5MIN PRN IV MODERATE PAIN Last administered on 02/16/17t 16:06; Start 02/16/17 at 11:45; Stop 02/17/17 at 11 :44 Morphine Sulfate 1 mg PRN Q10MIN PRN IV SEVERE PAIN; Start 02/16/17 at 11:45; Stop 02/17/17 at 11:44 Ringer's Solution 1,000 ml @ 30 mls/hr Q24H IV ; Start 02/16/17 at 11:42; Stop 02/16/17 at 23:41 Lidocaine HCl 2 ml PRN 1X PRN ID PRIOR TO IV START; Start 02/16/17 at 11:45; Stop 02/17/17 at 11:44 Hydromorphone HCl (Dilaudid) 0.5 mg PRN Q10MIN PRN IV SEV PAIN, Second choice; Start 02/16/17 at 11:45; Stop 02/17/17 at 11:44 Prochlorperazine Edisylate (Compazine) 5 mg PACU PRN PRN IV NAUSEA, MRX1 Last administered on 02/16/17t 15:59; Start 02/16/17 at 11:45; Stop 02/17/17 at 11:44 Fentanyl Citrate (Fentanyl 2ml Vial) 100 mcg STK-MED ONCE .ROUTE ; Start at 12:32; Stop 02/16/17 at 12:33; Status DC Rocuronium [place] (Zemuron) 100 mg STK-MED ONCE .ROUTE ; Start 02/16/17 at 12:32 ; Stop 02/16/17 at 12:33; Status DC Desflurane (Suprane) 60 ml STK-MED ONCE IH ; Start 02/16/17 at 12:33; Stop at 12:34; Status DC Propofol 20 ml @ As Directed STK-MED ONCE IV ; Start 02/16/17 at 12:33; Stop 02/16 at 12:34; Status DC Neostigmine Methylsulfate (Bloxiverz) 10 mg STK-MED ONCE .ROUTE ; Start 02/16/17 at 12:33; Stop 02/16/17 at 12:34; Status DC Ondansetron HCl (Zofran) 4 mg STK-MED ONCE .ROUTE ; Start 02/16/17 at 12:34; Stop 02/16/17 at 12:35; Status DC Dexamethasone Sodium Phosphate (Decadron) 20 mg STK-MED ONCE .ROUTE ; Start 02/16 at 12:34; Stop 02/16/17 at 12:35; Status DC Lidocaine HCl (Lidocaine Pf 2% Vial) 5 ml STK-MED ONCE .ROUTE ; Start 02/16/17 at 12:34; Stop 02/16/17 at 12:35; Status DC Cellulose 1 each STK-MED ONCE .ROUTE ; Start 02/16/17 at 13:51; Stop 02/16/17 at 13:52; Status DC Bupivacaine HCl/ Epinephrine Bitart (Sensorcain-Mpf Epi 0.5%-1:[id number]) 30 ml STK -MED ONCE .ROUTE Last administered on 02/16/17 14:39; Start 02/16/17 at 13:51; Stop 02/16/17 at 13:52; Status DC Iohexol (Omnipaque 300 Mg/ml) 50 ml STK-MED ONCE .ROUTE Last administered on 14:39; Start 02/16/17 at 13:51; Stop 02/16/17 at 13:52; Status DC Glucagon (Glucagen) 1 mg STK-MED ONCE .ROUTE ; Start 02/16/17 at 13:51; Stop 02/16 at 13:52; Status DC Fentanyl Citrate (Fentanyl 2ml Vial) 100 mcg STK-MED ONCE .ROUTE ; Start at 14:02; Stop 02/16/17 at 14:03; Status DC Desflurane (Suprane) 90 ml STK-MED ONCE IH ; Start 02/16/17 at 14:06; Stop at 14:07; Status DC Midazolam HCl (Versed) 2 mg STK-MED ONCE .ROUTE ; Start 02/16/17 at 14:25; Stop 02/16/17 at 14:26; Status DC Neostigmine Methylsulfate (Bloxiverz) 10 mg STK-MED ONCE .ROUTE ; Start 02/16/17 at 15:11; Stop 02/16/17 at 15:12; Status DC Glycopyrrolate (Robinul) 1 mg STK-MED ONCE .ROUTE ; Start 02/16/17 at 15:11; Stop 02/16/17 at 15:12; Status DC Ketorolac Tromethamine (Toradol For Or Only) 60 mg STK-MED ONCE .ROUTE ; Start 02/16/17 at 15:27; Stop 02/16/17 at 15:28; Status DC Sevoflurane (Ultane) 60 ml STK-MED ONCE IH ; Start 02/16/17 at 15:27; Stop at 15:28; Status DC Sodium Chloride (Normal Saline Flush) 3 ml QSHIFT PRN IV AFTER MEDS AND BLOOD DRAWS; Start 02/16/17 at 16:00 Dextrose (Dextrose 50%-Water Syringe) 12.5 gm PRN Q15MIN PRN IV SEE COMMENTS; Start 02/16/17 at 16:00 Oxycodone/ Acetaminophen (Percocet 5/325) 1 tab PRN Q4HRS PRN PO MILD PAIN, 1ST CHOICE; Start 02/16/17 at 16:00 Oxycodone/ Acetaminophen (Percocet 5/325) 2 tab PRN Q4HRS PRN PO MODERATE PAIN , SEVERE PAIN; Start 02/16/17 at 16:00 Hydromorphone HCl (Dilaudid) 1 mg PRN Q3HRS PRN IV PAIN; Start 02/16/17 at 16:00 Enoxaparin Sodium (Lovenox 40mg Syringe) 40 mg Q24H SQ ; Start 02/16/17 at 17:00 Active Scripts Active Reported Lovastatin 20 Mg Tablet 1 Tab PO DAILY Levothyroxine Sodium 50 Mcg Tablet 1 Tab PO DAILY Lisinopril 10 Mg Tablet 1 Tab PO DAILY Metformin Hcl 850 Mg Tablet 850 Mg PO BIDWMEALS Allergies Allergies: Coded Allergies: No Known Drug Allergies (Unverified , 02/15/17) ROS Review of System Negative with exception of present complaints Physical Exam General: Alert, Oriented X3, Cooperative, No acute distress HEENT: Atraumatic, EOMI Lungs: Clear to auscultation Heart: Regular rate Abdomen: Soft, Other (minimally TTP in the RUQ) Extremities: No clubbing Skin: No rashes Psych/Mental Status: Mental status NL MUSCULOSKELETAL: No deformity Vitals VITALS Vital Signs Date Time Temp Pulse Resp B/P (MAP) Pulse Ox O2 Delivery O2 Flow Rate FiO2 02/16/17 16:27 97.8 66 16 144/66 97 Nasal Cannula 2 97.8 Labs Labs Laboratory Tests Test 02/16/17 00:01 02/16/17 00:05 02/16/17 11:33 02/16/17 15:53 Urine Collection Type Unknown Urine Color Yellow Urine Clarity Clear Urine pH 6.0 Urine Specific [place] >=1.030 Urine Protein Negative mg/dL (NEG-TRACE) Urine Glucose (UA) >=1000 mg/dL (NEG) Urine Ketones (Stick) Negative mg/dL (NEG) Urine Blood Negative (NEG) Urine Nitrite Negative (NEG) Urine Bilirubin Negative (NEG) Urine Urobilinogen Dipstick 0.2 mg/dL (0.2 mg/dL) Urine Leukocyte Esterase Small (NEG) Urine RBC Occ /HPF (0-2) Urine WBC 20-40 /HPF (0-4) Urine Squamous Epithelial Cells Mod /LPF Urine Bacteria Few /HPF (0-FEW) Urine Mucus Mod /LPF White Blood Count 8.0 x10^3/uL (4.0-11.0) Red Blood Count 4.41 x10^6/uL (3.50-5.40) Hemoglobin 13.1 g/dL (12.0-15.5) Hematocrit 38.7 % (36.0-47.0) Mean Corpuscular Volume 88 fL (79-100) Mean Corpuscular Hemoglobin 30 pg (25-35) Mean Corpuscular Hemoglobin Concent 34 g/dL (31-37) Red Cell Distribution Width 13.6 % (11.5-14.5) Platelet Count 243 x10^3/uL (140-400) Neutrophils (%) (Auto) 78 % (31-73) Lymphocytes (%) (Auto) 16 % (24-48) Monocytes (%) (Auto) 4 % (0-9) Eosinophils (%) (Auto) 2 % (0-3) Basophils (%) (Auto) 0 % (0-3) Neutrophils # (Auto) 6.2 x10^3uL (1.8-7.7) Lymphocytes # (Auto) 1.3 x10^3/uL (1.0-4.8) Monocytes # (Auto) 0.3 x10^3/uL (0.0-1.1) Eosinophils # (Auto) 0.1 x10^3/uL (0.0-0.7) Basophils # (Auto) 0.0 x10^3/uL (0.0-0.2) Sodium Level 139 mmol/L (136-145) Potassium Level 3.6 mmol/L (3.5-5.1) Chloride Level 102 mmol/L (98-107) Carbon Dioxide Level 27 mmol/L (21-32) Anion Gap 10 (6-14) Blood Urea Nitrogen 20 mg/dL (7-20) Creatinine 0.8 mg/dL (0.6-1.0) Estimated GFR (Cockcroft-Gault) 74.2 BUN/Creatinine Ratio 25 (6-20) Glucose Level 225 mg/dL (70-99) Calcium Level 10.0 mg/dL (8.5-10.1) Total Bilirubin 0.4 mg/dL (0.2-1.0) Aspartate Amino Transf (AST/SGOT) 74 U/L (15-37) Alanine Aminotransferase (ALT/SGPT) 59 U/L (14-59) Alkaline Phosphatase 70 U/L (46-116) Total Protein 6.4 g/dL (6.4-8.2) Albumin 3.5 g/dL (3.4-5.0) Albumin/Globulin Ratio 1.2 (1.0-1.7) Lipase 266 U/L (73-393) Glucose (Fingerstick) 100 mg/dL (70-99) 122 mg/dL (70-99) Laboratory Tests Test 02/16/17 00:01 02/16/17 00:05 02/16/17 11:33 02/16/17 15:53 Urine Collection Type Unknown Urine Color Yellow Urine Clarity Clear Urine pH 6.0 Urine Specific [place] >=1.030 Urine Protein Negative mg/dL (NEG-TRACE) Urine Glucose (UA) >=1000 mg/dL (NEG) Urine Ketones (Stick) Negative mg/dL (NEG) Urine Blood Negative (NEG) Urine Nitrite Negative (NEG) Urine Bilirubin Negative (NEG) Urine Urobilinogen Dipstick 0.2 mg/dL (0.2 mg/dL) Urine Leukocyte Esterase Small (NEG) Urine RBC Occ /HPF (0-2) Urine WBC 20-40 /HPF (0-4) Urine Squamous Epithelial Cells Mod /LPF Urine Bacteria Few /HPF (0-FEW) Urine Mucus Mod /LPF White Blood Count 8.0 x10^3/uL (4.0-11.0) Red Blood Count 4.41 x10^6/uL (3.50-5.40) Hemoglobin 13.1 g/dL (12.0-15.5) Hematocrit 38.7 % (36.0-47.0) Mean Corpuscular Volume 88 fL (79-100) Mean Corpuscular Hemoglobin 30 pg (25-35) Mean Corpuscular Hemoglobin Concent 34 g/dL (31-37) Red Cell Distribution Width 13.6 % (11.5-14.5) Platelet Count 243 x10^3/uL (140-400) Neutrophils (%) (Auto) 78 % (31-73) Lymphocytes (%) (Auto) 16 % (24-48) Monocytes (%) (Auto) 4 % (0-9) Eosinophils (%) (Auto) 2 % (0-3) Basophils (%) (Auto) 0 % (0-3) Neutrophils # (Auto) 6.2 x10^3uL (1.8-7.7) Lymphocytes # (Auto) 1.3 x10^3/uL (1.0-4.8) Monocytes # (Auto) 0.3 x10^3/uL (0.0-1.1) Eosinophils # (Auto) 0.1 x10^3/uL (0.0-0.7) Basophils # (Auto) 0.0 x10^3/uL (0.0-0.2) Sodium Level 139 mmol/L (136-145) Potassium Level 3.6 mmol/L (3.5-5.1) Chloride Level 102 mmol/L (98-107) Carbon Dioxide Level 27 mmol/L (21-32) Anion Gap 10 (6-14) Blood Urea Nitrogen 20 mg/dL (7-20) Creatinine 0.8 mg/dL (0.6-1.0) Estimated GFR (Cockcroft-Gault) 74.2 BUN/Creatinine Ratio 25 (6-20) Glucose Level 225 mg/dL (70-99) Calcium Level 10.0 mg/dL (8.5-10.1) Total Bilirubin 0.4 mg/dL (0.2-1.0) Aspartate Amino Transf (AST/SGOT) 74 U/L (15-37) Alanine Aminotransferase (ALT/SGPT) 59 U/L (14-59) Alkaline Phosphatase 70 U/L (46-116) Total Protein 6.4 g/dL (6.4-8.2) Albumin 3.5 g/dL (3.4-5.0) Albumin/Globulin Ratio 1.2 (1.0-1.7) Lipase 266 U/L (73-393) Glucose (Fingerstick) 100 mg/dL (70-99) 122 mg/dL (70-99) Images Images US reviewed Assessment/Plan Assessment/Plan sx cholelithiasis with a generous CBD Recommend l/s mirian with grams. Explained risks to Kristie and her including but not limited to bleeding, infection, injury to bowel, liver or bile ducts with resultant bile leak or bile blockage. Also possible need for an "open" procedure or diarrhea post op. Also may need further surgery or procedures for possible CBD stone. She understands and will proceed. D/W GI Thanks for consult JOHN MUNGUIA MD Feb 16, 2017 16:42
[2017-02-16] MEDS ORDERED: ENOXAPARIN 40 MG/0.4 ML SYRINGE. SQ SCH (17:00)
[2017-02-16 19:00] VITALS: BP 143/68
--- NOTE | 2017-02-16 20:19 | OP ---
DATE OF SURGERY: 02/16/2017 PREOPERATIVE DIAGNOSIS: Symptomatic cholelithiasis. POSTOPERATIVE DIAGNOSIS: Symptomatic cholelithiasis. PROCEDURE: Laparoscopic cholecystectomy with cholangiogram. SURGEON: Roberto Munguia M.D. PROCESSING INSPECTOR: Emigdio Boateng ANESTHESIA: General endotracheal. ESTIMATED BLOOD LOSS: 20 mL. IV FLUID: 800 mL. INDICATIONS: The patient is a 56-year-old with right upper quadrant pain, postprandially. Ultrasound shows stones. She is brought for cholecystectomy. Her ultrasound also suggested some dilatation of the common duct up to 9 mm. Cholangiograms did not show common duct stone; however, had some tapering at the end of the common duct. Omental adhesions were present in the left lower quadrant and left upper quadrant. DESCRIPTION OF PROCEDURE: The patient brought to the operating suite, given a general endotracheal anesthetic and the abdomen prepped and draped in usual sterile fashion. An infraumbilical incision was infiltrated with local anesthetic, sharply incised and a 5 mm Visiport used to gain access into the abdominal cavity, taking care to avoid injury to abdominal contents. Pneumoperitoneum established. Camera inserted, inspection carried out with results as noted above. With the table in reverse Trendelenburg rolled to the left, the epigastric, midclavicular, and lateral ports were placed under direct vision. The gallbladder was retracted superolaterally and omental adhesions were carefully taken down with blunt and cautery dissection, taking care to avoid injury to the adjacent bowel. The cystic duct and cystic artery were identified. The duct was clipped on the gallbladder side. Cholangiograms were made. When we opened the cystic duct to place the catheter some debris was milked from the cystic duct and common duct. Cholangiograms showed a mildly dilated hepatic tree without evidence of a retained stone. There was some narrowing of the distal common duct. In light of this, the catheter was removed. The cystic duct was clipped and divided taking care to avoid injury or compromise the common duct. The cystic artery was clipped and divided and the gallbladder freed from the bed with cautery dissection and placed in an EndoCatch bag. Good hemostasis was present. Table returned to level. Gallbladder delivered through the epigastric incision. Epigastric incision closed with interrupted 0 Vicryl suture. Intra-abdominal pressure decreased to 6 cm of water. No bleeding from the epigastric closure or from the midclavicular or lateral port sites after their removal. Abdomen decompressed, camera slowly removed, no bleeding seen. Skin incisions closed with subcuticular 4-0 Monocryl. Steri-Strips and sterile dressings applied. The patient awakened from her anesthetic and taken to the recovery room in satisfactory condition. ROBERTO MUNGUIA MD DR: STEPHENIE/milan JOB#: [id number] / [id number]
[2017-02-16] MEDS ORDERED: FAMOTIDINE 20 MG/2 ML VIAL IVP SCH (21:00)
[2017-02-16 23:00] VITALS: BP 139/62
[2017-02-17 03:00] VITALS: BP 135/59
[2017-02-17 06:16] LABS: BASO % 0 % (0-3); EOS % 0 % (0-3); HEMATOCRIT 36.2 % (36.0-47.0); HEMOGLOBIN 12.6 g/dL (12.0-15.5); LYMPH # 1.1 x10^3/uL (1.0-4.8); LYMPH % 13 % (24-48); MEAN CORPUSCULAR HEMOGLOBIN 30 pg (25-35); MEAN CORPUSCULAR HGB CONC 35 g/dL (31-37); MEAN CORPUSCULAR VOLUME 85 fL (79-100); MONO % 7 % (0-9); NEUT % 80 % (31-73); PLATELET COUNT 225 x10^3/uL (140-400); RED BLOOD COUNT 4.25 x10^6/uL (3.50-5.40); RED CELL DISTRIBUTION WIDTH 13.4 % (11.5-14.5); WHITE BLOOD COUNT 8.9 x10^3/uL (4.0-11.0)
[2017-02-17 07:00] VITALS: BP 126/57
[2017-02-17 07:11] LABS: ALBUMIN 3.3 g/dL (3.4-5.0); CALCIUM 8.9 mg/dL (8.5-10.1); CREATININE 0.7 mg/dL (0.6-1.0); GFR 86.6; POTASSIUM 4.3 mmol/L (3.5-5.1); TOTAL BILIRUBIN 0.6 mg/dL (0.2-1.0); TOTAL PROTEIN 6.1 g/dL (6.4-8.2)
[2017-02-17 07:12] LABS: DIRECT BILIRUBIN 0.2 mg/dL (0.0-0.2)
[2017-02-17] MEDS: INSULIN ASPART 300 UNITS/3 ML INSULN.PEN SQ SCH ×2 (08:00→11:18)
[2017-02-17] MEDS ORDERED: LEVOTHYROXINE SODIUM 25 MCG in IV NORMAL SALINE 50ML 5 ML IVP SCH (09:00)
--- NOTE | 2017-02-17 09:31 | PDOC ---
[facility] TRAFFIC SURVEY TECHNICIAN 02/17/17 0931: SURGICAL PROGRESS NOTE Subjective tolerating diet feels well no n/v urinating Vital Signs Vital Signs Date Time Temp Pulse Resp B/P (MAP) Pulse Ox O2 Delivery O2 Flow Rate FiO2 02/17/17 07:25 Room Air 02/17/17 07:00 98.7 63 18 126/57 (80) 95 98.7 02/16/17 16:42 2 I&O Intake and Output 02/17/17 07:00 Intake Total 2230 ml Output Total 20 ml Balance 2210 ml Intake Oral 780 ml IV Total 1450 ml Output Estimated Blood Loss 20 ml # Voids 6 General: Alert, Oriented X3, Cooperative, No acute distress Abdomen: Soft, Other (lap dressings dry, incisional TTP) Labs Laboratory Tests Test 02/16/17 00:01 02/16/17 00:05 02/16/17 11:33 02/16/17 15:53 Urine Collection Type Unknown Urine Color Yellow Urine Clarity Clear Urine pH 6.0 Urine Specific [place] >=1.030 Urine Protein Negative mg/dL (NEG-TRACE) Urine Glucose (UA) >=1000 mg/dL (NEG) Urine Ketones (Stick) Negative mg/dL (NEG) Urine Blood Negative (NEG) Urine Nitrite Negative (NEG) Urine Bilirubin Negative (NEG) Urine Urobilinogen Dipstick 0.2 mg/dL (0.2 mg/dL) Urine Leukocyte Esterase Small (NEG) Urine RBC Occ /HPF (0-2) Urine WBC 20-40 /HPF (0-4) Urine Squamous Epithelial Cells Mod /LPF Urine Bacteria Few /HPF (0-FEW) Urine Mucus Mod /LPF White Blood Count 8.0 x10^3/uL (4.0-11.0) Red Blood Count 4.41 x10^6/uL (3.50-5.40) Hemoglobin 13.1 g/dL (12.0-15.5) Hematocrit 38.7 % (36.0-47.0) Mean Corpuscular Volume 88 fL (79-100) Mean Corpuscular Hemoglobin 30 pg (25-35) Mean Corpuscular Hemoglobin Concent 34 g/dL (31-37) Red Cell Distribution Width 13.6 % (11.5-14.5) Platelet Count 243 x10^3/uL (140-400) Neutrophils (%) (Auto) 78 % (31-73) Lymphocytes (%) (Auto) 16 % (24-48) Monocytes (%) (Auto) 4 % (0-9) Eosinophils (%) (Auto) 2 % (0-3) Basophils (%) (Auto) 0 % (0-3) Neutrophils # (Auto) 6.2 x10^3uL (1.8-7.7) Lymphocytes # (Auto) 1.3 x10^3/uL (1.0-4.8) Monocytes # (Auto) 0.3 x10^3/uL (0.0-1.1) Eosinophils # (Auto) 0.1 x10^3/uL (0.0-0.7) Basophils # (Auto) 0.0 x10^3/uL (0.0-0.2) Sodium Level 139 mmol/L (136-145) Potassium Level 3.6 mmol/L (3.5-5.1) Chloride Level 102 mmol/L (98-107) Carbon Dioxide Level 27 mmol/L (21-32) Anion Gap 10 (6-14) Blood Urea Nitrogen 20 mg/dL (7-20) Creatinine 0.8 mg/dL (0.6-1.0) Estimated GFR (Cockcroft-Gault) 74.2 BUN/Creatinine Ratio 25 (6-20) Glucose Level 225 mg/dL (70-99) Calcium Level 10.0 mg/dL (8.5-10.1) Total Bilirubin 0.4 mg/dL (0.2-1.0) Aspartate Amino Transf (AST/SGOT) 74 U/L (15-37) Alanine Aminotransferase (ALT/SGPT) 59 U/L (14-59) Alkaline Phosphatase 70 U/L (46-116) Total Protein 6.4 g/dL (6.4-8.2) Albumin 3.5 g/dL (3.4-5.0) Albumin/Globulin Ratio 1.2 (1.0-1.7) Lipase 266 U/L (73-393) Glucose (Fingerstick) 100 mg/dL (70-99) 122 mg/dL (70-99) Test 02/16/17 17:13 02/17/17 06:06 Glucose (Fingerstick) 178 mg/dL (70-99) White Blood Count 8.9 x10^3/uL (4.0-11.0) Red Blood Count 4.25 x10^6/uL (3.50-5.40) Hemoglobin 12.6 g/dL (12.0-15.5) Hematocrit 36.2 % (36.0-47.0) Mean Corpuscular Volume 85 fL (79-100) Mean Corpuscular Hemoglobin 30 pg (25-35) Mean Corpuscular Hemoglobin Concent 35 g/dL (31-37) Red Cell Distribution Width 13.4 % (11.5-14.5) Platelet Count 225 x10^3/uL (140-400) Neutrophils (%) (Auto) 80 % (31-73) Lymphocytes (%) (Auto) 13 % (24-48) Monocytes (%) (Auto) 7 % (0-9) Eosinophils (%) (Auto) 0 % (0-3) Basophils (%) (Auto) 0 % (0-3) Neutrophils # (Auto) 7.2 x10^3uL (1.8-7.7) Lymphocytes # (Auto) 1.1 x10^3/uL (1.0-4.8) Monocytes # (Auto) 0.6 x10^3/uL (0.0-1.1) Eosinophils # (Auto) 0.0 x10^3/uL (0.0-0.7) Basophils # (Auto) 0.0 x10^3/uL (0.0-0.2) Sodium Level 140 mmol/L (136-145) Potassium Level 4.3 mmol/L (3.5-5.1) Chloride Level 106 mmol/L (98-107) Carbon Dioxide Level 24 mmol/L (21-32) Anion Gap 10 (6-14) Blood Urea Nitrogen 11 mg/dL (7-20) Creatinine 0.7 mg/dL (0.6-1.0) Estimated GFR (Cockcroft-Gault) 86.6 Glucose Level 121 mg/dL (70-99) Calcium Level 8.9 mg/dL (8.5-10.1) Total Bilirubin 0.6 mg/dL (0.2-1.0) Direct Bilirubin 0.2 mg/dL (0.0-0.2) Aspartate Amino Transf (AST/SGOT) 282 U/L (15-37) Alanine Aminotransferase (ALT/SGPT) 524 U/L (14-59) Alkaline Phosphatase 65 U/L (46-116) Total Protein 6.1 g/dL (6.4-8.2) Albumin 3.3 g/dL (3.4-5.0) Laboratory Tests Test 02/16/17 11:33 02/16/17 15:53 02/16/17 17:13 02/17/17 06:06 Glucose (Fingerstick) 100 mg/dL (70-99) 122 mg/dL (70-99) 178 mg/dL (70-99) White Blood Count 8.9 x10^3/uL (4.0-11.0) Red Blood Count 4.25 x10^6/uL (3.50-5.40) Hemoglobin 12.6 g/dL (12.0-15.5) Hematocrit 36.2 % (36.0-47.0) Mean Corpuscular Volume 85 fL (79-100) Mean Corpuscular Hemoglobin 30 pg (25-35) Mean Corpuscular Hemoglobin Concent 35 g/dL (31-37) Red Cell Distribution Width 13.4 % (11.5-14.5) Platelet Count 225 x10^3/uL (140-400) Neutrophils (%) (Auto) 80 % (31-73) Lymphocytes (%) (Auto) 13 % (24-48) Monocytes (%) (Auto) 7 % (0-9) Eosinophils (%) (Auto) 0 % (0-3) Basophils (%) (Auto) 0 % (0-3) Neutrophils # (Auto) 7.2 x10^3uL (1.8-7.7) Lymphocytes # (Auto) 1.1 x10^3/uL (1.0-4.8) Monocytes # (Auto) 0.6 x10^3/uL (0.0-1.1) Eosinophils # (Auto) 0.0 x10^3/uL (0.0-0.7) Basophils # (Auto) 0.0 x10^3/uL (0.0-0.2) Sodium Level 140 mmol/L (136-145) Potassium Level 4.3 mmol/L (3.5-5.1) Chloride Level 106 mmol/L (98-107) Carbon Dioxide Level 24 mmol/L (21-32) Anion Gap 10 (6-14) Blood Urea Nitrogen 11 mg/dL (7-20) Creatinine 0.7 mg/dL (0.6-1.0) Estimated GFR (Cockcroft-Gault) 86.6 Glucose Level 121 mg/dL (70-99) Calcium Level 8.9 mg/dL (8.5-10.1) Total Bilirubin 0.6 mg/dL (0.2-1.0) Direct Bilirubin 0.2 mg/dL (0.0-0.2) Aspartate Amino Transf (AST/SGOT) 282 U/L (15-37) Alanine Aminotransferase (ALT/SGPT) 524 U/L (14-59) Alkaline Phosphatase 65 U/L (46-116) Total Protein 6.1 g/dL (6.4-8.2) Albumin 3.3 g/dL (3.4-5.0) Problem List Problems Medical Problems: (1) Common bile duct dilation Status: Acute (2) Symptomatic cholelithiasis Status: Acute Assessment/Plan s/p lap mirian IOC without CBD stone, did have mild narrowing of the distal common bile duct may reflect spasm--bump is AST/ALT, tbili normal will review with Dr Munguia, likely home today FU 1 week Problems: JOHN MUNGUIA MD 02/17/17 1202: SURGICAL PROGRESS NOTE Assessment/Plan pt seen agree with above no new surgical recs follow labs Problems: KAISER LUCAS APRN Feb 17, 2017 09:31 JOHN MUNGUIA MD Feb 17, 2017 12:02
--- NOTE | 2017-02-17 10:50 | PDOC ---
Subjective: Subjective: Concerned re: LFTs, mom had liver cancer. Feels much better - has post-op pain but is tolerating PO, walking, and passing gas. Was hopeful to DC today. Objective: Objective: D/w Dr. Looney. Vital Signs: Vital Signs Date Time Temp Pulse Resp B/P (MAP) Pulse Ox O2 Delivery O2 Flow Rate FiO2 02/17/17 07:25 Room Air 02/17/17 07:00 98.7 63 18 126/57 (80) 95 98.7 02/16/17 16:42 2 Labs: Laboratory Tests Test 02/16/17 11:33 02/16/17 15:53 02/16/17 17:13 02/17/17 06:06 Glucose (Fingerstick) 100 mg/dL 122 mg/dL 178 mg/dL White Blood Count 8.9 x10^3/uL Red Blood Count 4.25 x10^6/uL Hemoglobin 12.6 g/dL Hematocrit 36.2 % Mean Corpuscular Volume 85 fL Mean Corpuscular Hemoglobin 30 pg Mean Corpuscular Hemoglobin Concent 35 g/dL Red Cell Distribution Width 13.4 % Platelet Count 225 x10^3/uL Neutrophils (%) (Auto) 80 % Lymphocytes (%) (Auto) 13 % Monocytes (%) (Auto) 7 % Eosinophils (%) (Auto) 0 % Basophils (%) (Auto) 0 % Neutrophils # (Auto) 7.2 x10^3uL Lymphocytes # (Auto) 1.1 x10^3/uL Monocytes # (Auto) 0.6 x10^3/uL Eosinophils # (Auto) 0.0 x10^3/uL Basophils # (Auto) 0.0 x10^3/uL Sodium Level 140 mmol/L Potassium Level 4.3 mmol/L Chloride Level 106 mmol/L Carbon Dioxide Level 24 mmol/L Anion Gap 10 Blood Urea Nitrogen 11 mg/dL Creatinine 0.7 mg/dL Estimated GFR (Cockcroft-Gault) 86.6 Glucose Level 121 mg/dL Calcium Level 8.9 mg/dL Total Bilirubin 0.6 mg/dL Direct Bilirubin 0.2 mg/dL Aspartate Amino Transf (AST/SGOT) 282 U/L Alanine Aminotransferase (ALT/SGPT) 524 U/L Alkaline Phosphatase 65 U/L Total Protein 6.1 g/dL Albumin 3.3 g/dL Lipase 187 U/L Imaging: IOC IMPRESSION: Mildly prominent common hepatic, common bile duct and intrahepatic radicles. Mild narrowing of the distal common bile duct may reflect spasm. Other etiologies are not excluded. No definite choledocholithiasis. PE: GEN: NAD LUNGS: CTAB HEART: RRR ABD: RUQ tenderness, BS quiet NEURO/PSYCH: A & O 3, tearful when discussing her concerns re: liver cancer A/P: S/p cholecystectomy 02/16/17 Elevated AST/ALT -- IOC as above, total bili normal, feeling better. DC held w/ elevated LFTs, will review w/ Dr. Pond. RICKY ABREU Feb 17, 2017 10:50
[2017-02-17 11:00] VITALS: BP 134/61
--- NOTE | 2017-02-17 11:54 | PDOC ---
PROGRESS NOTES Chief Complaint Chief Complaint abd pain with cholelithiasis s/p lab mirian 02/16 dm2 htn hld hypothyroidism tobaccoism elevated LFT post sx 2/2 bile duct spasm? plan; fu with gi, sx ada diet pain control resume po meds dvt ppx ssi gi ppx dc tmr when LFT better History of Present Illness History of Present Illness no N/V, no abd pain, + flatus, but no BM LFT high Vitals Vitals Vital Signs Date Time Temp Pulse Resp B/P (MAP) Pulse Ox O2 Delivery O2 Flow Rate FiO2 02/17/17 07:25 Room Air 02/17/17 07:00 98.7 63 18 126/57 (80) 95 98.7 02/16/17 16:42 2 Physical Exam General: Alert, Oriented X3, Cooperative, No acute distress Heart: Regular rate Lungs: Clear Abdomen: Normal bowel sounds, Soft, No tenderness, Other (lap dressings dry, incisional TTP) Extremities: No clubbing Skin: No rashes Labs LABS Laboratory Tests Test 02/16/17 15:53 02/16/17 17:13 02/17/17 06:06 02/17/17 11:18 Glucose (Fingerstick) 122 mg/dL (70-99) 178 mg/dL (70-99) 115 mg/dL (70-99) White Blood Count 8.9 x10^3/uL (4.0-11.0) Red Blood Count 4.25 x10^6/uL (3.50-5.40) Hemoglobin 12.6 g/dL (12.0-15.5) Hematocrit 36.2 % (36.0-47.0) Mean Corpuscular Volume 85 fL (79-100) Mean Corpuscular Hemoglobin 30 pg (25-35) Mean Corpuscular Hemoglobin Concent 35 g/dL (31-37) Red Cell Distribution Width 13.4 % (11.5-14.5) Platelet Count 225 x10^3/uL (140-400) Neutrophils (%) (Auto) 80 % (31-73) Lymphocytes (%) (Auto) 13 % (24-48) Monocytes (%) (Auto) 7 % (0-9) Eosinophils (%) (Auto) 0 % (0-3) Basophils (%) (Auto) 0 % (0-3) Neutrophils # (Auto) 7.2 x10^3uL (1.8-7.7) Lymphocytes # (Auto) 1.1 x10^3/uL (1.0-4.8) Monocytes # (Auto) 0.6 x10^3/uL (0.0-1.1) Eosinophils # (Auto) 0.0 x10^3/uL (0.0-0.7) Basophils # (Auto) 0.0 x10^3/uL (0.0-0.2) Sodium Level 140 mmol/L (136-145) Potassium Level 4.3 mmol/L (3.5-5.1) Chloride Level 106 mmol/L (98-107) Carbon Dioxide Level 24 mmol/L (21-32) Anion Gap 10 (6-14) Blood Urea Nitrogen 11 mg/dL (7-20) Creatinine 0.7 mg/dL (0.6-1.0) Estimated GFR (Cockcroft-Gault) 86.6 Glucose Level 121 mg/dL (70-99) Calcium Level 8.9 mg/dL (8.5-10.1) Total Bilirubin 0.6 mg/dL (0.2-1.0) Direct Bilirubin 0.2 mg/dL (0.0-0.2) Aspartate Amino Transf (AST/SGOT) 282 U/L (15-37) Alanine Aminotransferase (ALT/SGPT) 524 U/L (14-59) Alkaline Phosphatase 65 U/L (46-116) Total Protein 6.1 g/dL (6.4-8.2) Albumin 3.3 g/dL (3.4-5.0) Lipase 187 U/L (73-393) Review of Systems Review of Systems no fever, chills, sob or chest pain Assessment and Plan Assessmemt and Plan Problems Medical Problems: (1) Common bile duct dilation Status: Acute (2) Symptomatic cholelithiasis Status: Acute Problems: Comment Review of Relevant I have reviewed the following items kristin (where applicable) has been applied. Labs Laboratory Tests Test 02/16/17 00:01 02/16/17 00:05 02/16/17 11:33 02/16/17 15:53 Urine Collection Type Unknown Urine Color Yellow Urine Clarity Clear Urine pH 6.0 Urine Specific [place] >=1.030 Urine Protein Negative mg/dL (NEG-TRACE) Urine Glucose (UA) >=1000 mg/dL (NEG) Urine Ketones (Stick) Negative mg/dL (NEG) Urine Blood Negative (NEG) Urine Nitrite Negative (NEG) Urine Bilirubin Negative (NEG) Urine Urobilinogen Dipstick 0.2 mg/dL (0.2 mg/dL) Urine Leukocyte Esterase Small (NEG) Urine RBC Occ /HPF (0-2) Urine WBC 20-40 /HPF (0-4) Urine Squamous Epithelial Cells Mod /LPF Urine Bacteria Few /HPF (0-FEW) Urine Mucus Mod /LPF White Blood Count 8.0 x10^3/uL (4.0-11.0) Red Blood Count 4.41 x10^6/uL (3.50-5.40) Hemoglobin 13.1 g/dL (12.0-15.5) Hematocrit 38.7 % (36.0-47.0) Mean Corpuscular Volume 88 fL (79-100) Mean Corpuscular Hemoglobin 30 pg (25-35) Mean Corpuscular Hemoglobin Concent 34 g/dL (31-37) Red Cell Distribution Width 13.6 % (11.5-14.5) Platelet Count 243 x10^3/uL (140-400) Neutrophils (%) (Auto) 78 % (31-73) Lymphocytes (%) (Auto) 16 % (24-48) Monocytes (%) (Auto) 4 % (0-9) Eosinophils (%) (Auto) 2 % (0-3) Basophils (%) (Auto) 0 % (0-3) Neutrophils # (Auto) 6.2 x10^3uL (1.8-7.7) Lymphocytes # (Auto) 1.3 x10^3/uL (1.0-4.8) Monocytes # (Auto) 0.3 x10^3/uL (0.0-1.1) Eosinophils # (Auto) 0.1 x10^3/uL (0.0-0.7) Basophils # (Auto) 0.0 x10^3/uL (0.0-0.2) Sodium Level 139 mmol/L (136-145) Potassium Level 3.6 mmol/L (3.5-5.1) Chloride Level 102 mmol/L (98-107) Carbon Dioxide Level 27 mmol/L (21-32) Anion Gap 10 (6-14) Blood Urea Nitrogen 20 mg/dL (7-20) Creatinine 0.8 mg/dL (0.6-1.0) Estimated GFR (Cockcroft-Gault) 74.2 BUN/Creatinine Ratio 25 (6-20) Glucose Level 225 mg/dL (70-99) Calcium Level 10.0 mg/dL (8.5-10.1) Total Bilirubin 0.4 mg/dL (0.2-1.0) Aspartate Amino Transf (AST/SGOT) 74 U/L (15-37) Alanine Aminotransferase (ALT/SGPT) 59 U/L (14-59) Alkaline Phosphatase 70 U/L (46-116) Total Protein 6.4 g/dL (6.4-8.2) Albumin 3.5 g/dL (3.4-5.0) Albumin/Globulin Ratio 1.2 (1.0-1.7) Lipase 266 U/L (73-393) Glucose (Fingerstick) 100 mg/dL (70-99) 122 mg/dL (70-99) Test 02/16/17 17:13 02/17/17 06:06 02/17/17 11:18 Glucose (Fingerstick) 178 mg/dL (70-99) 115 mg/dL (70-99) White Blood Count 8.9 x10^3/uL (4.0-11.0) Red Blood Count 4.25 x10^6/uL (3.50-5.40) Hemoglobin 12.6 g/dL (12.0-15.5) Hematocrit 36.2 % (36.0-47.0) Mean Corpuscular Volume 85 fL (79-100) Mean Corpuscular Hemoglobin 30 pg (25-35) Mean Corpuscular Hemoglobin Concent 35 g/dL (31-37) Red Cell Distribution Width 13.4 % (11.5-14.5) Platelet Count 225 x10^3/uL (140-400) Neutrophils (%) (Auto) 80 % (31-73) Lymphocytes (%) (Auto) 13 % (24-48) Monocytes (%) (Auto) 7 % (0-9) Eosinophils (%) (Auto) 0 % (0-3) Basophils (%) (Auto) 0 % (0-3) Neutrophils # (Auto) 7.2 x10^3uL (1.8-7.7) Lymphocytes # (Auto) 1.1 x10^3/uL (1.0-4.8) Monocytes # (Auto) 0.6 x10^3/uL (0.0-1.1) Eosinophils # (Auto) 0.0 x10^3/uL (0.0-0.7) Basophils # (Auto) 0.0 x10^3/uL (0.0-0.2) Sodium Level 140 mmol/L (136-145) Potassium Level 4.3 mmol/L (3.5-5.1) Chloride Level 106 mmol/L (98-107) Carbon Dioxide Level 24 mmol/L (21-32) Anion Gap 10 (6-14) Blood Urea Nitrogen 11 mg/dL (7-20) Creatinine 0.7 mg/dL (0.6-1.0) Estimated GFR (Cockcroft-Gault) 86.6 Glucose Level 121 mg/dL (70-99) Calcium Level 8.9 mg/dL (8.5-10.1) Total Bilirubin 0.6 mg/dL (0.2-1.0) Direct Bilirubin 0.2 mg/dL (0.0-0.2) Aspartate Amino Transf (AST/SGOT) 282 U/L (15-37) Alanine Aminotransferase (ALT/SGPT) 524 U/L (14-59) Alkaline Phosphatase 65 U/L (46-116) Total Protein 6.1 g/dL (6.4-8.2) Albumin 3.3 g/dL (3.4-5.0) Lipase 187 U/L (73-393) Laboratory Tests Test 02/16/17 15:53 02/16/17 17:13 02/17/17 06:06 02/17/17 11:18 Glucose (Fingerstick) 122 mg/dL (70-99) 178 mg/dL (70-99) 115 mg/dL (70-99) White Blood Count 8.9 x10^3/uL (4.0-11.0) Red Blood Count 4.25 x10^6/uL (3.50-5.40) Hemoglobin 12.6 g/dL (12.0-15.5) Hematocrit 36.2 % (36.0-47.0) Mean Corpuscular Volume 85 fL (79-100) Mean Corpuscular Hemoglobin 30 pg (25-35) Mean Corpuscular Hemoglobin Concent 35 g/dL (31-37) Red Cell Distribution Width 13.4 % (11.5-14.5) Platelet Count 225 x10^3/uL (140-400) Neutrophils (%) (Auto) 80 % (31-73) Lymphocytes (%) (Auto) 13 % (24-48) Monocytes (%) (Auto) 7 % (0-9) Eosinophils (%) (Auto) 0 % (0-3) Basophils (%) (Auto) 0 % (0-3) Neutrophils # (Auto) 7.2 x10^3uL (1.8-7.7) Lymphocytes # (Auto) 1.1 x10^3/uL (1.0-4.8) Monocytes # (Auto) 0.6 x10^3/uL (0.0-1.1) Eosinophils # (Auto) 0.0 x10^3/uL (0.0-0.7) Basophils # (Auto) 0.0 x10^3/uL (0.0-0.2) Sodium Level 140 mmol/L (136-145) Potassium Level 4.3 mmol/L (3.5-5.1) Chloride Level 106 mmol/L (98-107) Carbon Dioxide Level 24 mmol/L (21-32) Anion Gap 10 (6-14) Blood Urea Nitrogen 11 mg/dL (7-20) Creatinine 0.7 mg/dL (0.6-1.0) Estimated GFR (Cockcroft-Gault) 86.6 Glucose Level 121 mg/dL (70-99) Calcium Level 8.9 mg/dL (8.5-10.1) Total Bilirubin 0.6 mg/dL (0.2-1.0) Direct Bilirubin 0.2 mg/dL (0.0-0.2) Aspartate Amino Transf (AST/SGOT) 282 U/L (15-37) Alanine Aminotransferase (ALT/SGPT) 524 U/L (14-59) Alkaline Phosphatase 65 U/L (46-116) Total Protein 6.1 g/dL (6.4-8.2) Albumin 3.3 g/dL (3.4-5.0) Lipase 187 U/L (73-393) Medications Current Medications Fentanyl Citrate (Fentanyl 2ml Vial) 50 mcg PRN Q15MIN PRN IV PAIN GREATER THAN 3/10 Last administered on 02/16/17 01:49; Start 02/16/17 at 00:15; Stop 04/26 at 00:14; Status DC Sodium Chloride 1,000 ml @ 1,000 mls/hr Q1H IV Last administered on 02/16/17 00:19; Start 02/16/17 at 00:30; Stop 02/16/17 at 01:29; Status DC Ondansetron HCl (Zofran) 4 mg 1X ONCE IV Last administered on 02/16/17 00:19; Start 02/16/17 at 00:30; Stop 02/16/17 at 00:31; Status DC Famotidine (Pepcid) 20 mg 1X ONCE IVP Last administered on 02/16/17 00:19; Start 02/16/17 at 00:30; Stop 02/16/17 at 00:31; Status DC Ondansetron HCl (Zofran) 4 mg PRN Q8HRS PRN IV NAUSEA/VOMITING; Start 02/16/17 at 02:15; Stop 02/17/17 at 02:14; Status DC Morphine Sulfate 4 mg PRN Q2HR PRN IV SEVERE PAIN; Start 02/16/17 at 02:15; Stop 02/17/17 at 02:14; Status DC Sodium Chloride 1,000 ml @ 125 mls/hr Q8H IV Last administered on 02/16/17 17: 34; Start 02/16/17 at 02:30; Stop 02/17/17 at 02:29; Status DC Acetaminophen (Tylenol) 650 mg PRN Q6HRS PRN PO FEVER Last administered on 02/17 11:15; Start 02/16/17 at 10:30 Ondansetron HCl (Zofran) 4 mg PRN Q6HRS PRN IV NAUSEA/VOMITING; Start 02/16/17 at 10:30 Morphine Sulfate 2 mg PRN Q2HR PRN IV PAIN; Start 02/16/17 at 10:30 Tramadol HCl (Ultram) 50 mg PRN Q6HRS PRN PO PAIN; Start 02/16/17 at 10:30 Hydralazine HCl (Apresoline) 10 mg PRN Q4HRS PRN IVP ELEVATED BP, SEE COMMENTS ; Start 02/16/17 at 10:30 Docusate Sodium (Colace) 100 mg PRN DAILY PRN PO CONSTIPATION; Start 02/16/17 at 10:30 Famotidine (Pepcid) 20 mg QHS IVP Last administered on 02/16/17 21:25; Start at 21:00 Levothyroxine Sodium 25 mcg/ Sodium Chloride 5 ml @ 100 mls/hr DAILY IVP Last administered on 02/17/17 08:53; Start 02/17/17 at 09:00 Insulin Aspart (NovoLOG) 0-9 UNITS TIDWMEALS SQ ; Start 02/16/17 at 12:00 Dextrose (Dextrose 50%-Water Syringe) 12.5 gm PRN Q15MIN PRN IV SEE COMMENTS; Start 02/16/17 at 10:30 Piperacillin Sod/ Tazobactam Sod 3.375 gm/Sodium Chloride 50 ml @ 100 mls/hr 1X ONCE IV Last administered on 02/16/17 11:30; Start 02/16/17 at 11:30; Stop 02/16/17 at 11:59; Status DC Ondansetron HCl (Zofran) 4 mg PRN Q6HRS PRN IV NAUSEA/VOMITING; Start 02/16/17 at 11:45; Stop 02/17/17 at 11:44; Status DC Fentanyl Citrate (Fentanyl 2ml Vial) 25 mcg PRN Q5MIN PRN IV MILD PAIN; Start 02/16/17 at 11:45; Stop 02/17/17 at 11:44; Status DC Fentanyl Citrate (Fentanyl 2ml Vial) 50 mcg PRN Q5MIN PRN IV MODERATE PAIN Last administered on 02/16/17 16:06; Start 02/16/17 at 11:45; Stop 02/17/17 at 11 :44; Status DC Morphine Sulfate 1 mg PRN Q10MIN PRN IV SEVERE PAIN; Start 02/16/17 at 11:45; Stop 02/17/17 at 11:44; Status DC Ringer's Solution 1,000 ml @ 30 mls/hr Q24H IV ; Start 02/16/17 at 11:42; Stop 02/16/17 at 23:41; Status DC Lidocaine HCl 2 ml PRN 1X PRN ID PRIOR TO IV START; Start 02/16/17 at 11:45; Stop 02/17/17 at 11:44; Status DC Hydromorphone HCl (Dilaudid) 0.5 mg PRN Q10MIN PRN IV SEV PAIN, Second choice; Start 02/16/17 at 11:45; Stop 02/17/17 at 11:44; Status DC Prochlorperazine Edisylate (Compazine) 5 mg PACU PRN PRN IV NAUSEA, MRX1 Last administered on 02/16/17t 15:59; Start 02/16/17 at 11:45; Stop 02/17/17 at 11:44; Status DC Fentanyl Citrate (Fentanyl 2ml Vial) 100 mcg STK-MED ONCE .ROUTE ; Start at 12:32; Stop 02/16/17 at 12:33; Status DC Rocuronium [place] (Zemuron) 100 mg STK-MED ONCE .ROUTE ; Start 02/16/17 at 12:32 ; Stop 02/16/17 at 12:33; Status DC Desflurane (Suprane) 60 ml STK-MED ONCE IH ; Start 02/16/17 at 12:33; Stop at 12:34; Status DC Propofol 20 ml @ As Directed STK-MED ONCE IV ; Start 02/16/17 at 12:33; Stop 02/16 at 12:34; Status DC Neostigmine Methylsulfate (Bloxiverz) 10 mg STK-MED ONCE .ROUTE ; Start 02/16/17 at 12:33; Stop 02/16/17 at 12:34; Status DC Ondansetron HCl (Zofran) 4 mg STK-MED ONCE .ROUTE ; Start 02/16/17 at 12:34; Stop 02/16/17 at 12:35; Status DC Dexamethasone Sodium Phosphate (Decadron) 20 mg STK-MED ONCE .ROUTE ; Start 02/16 at 12:34; Stop 02/16/17 at 12:35; Status DC Lidocaine HCl (Lidocaine Pf 2% Vial) 5 ml STK-MED ONCE .ROUTE ; Start 02/16/17 at 12:34; Stop 02/16/17 at 12:35; Status DC Cellulose 1 each STK-MED ONCE .ROUTE ; Start 02/16/17 at 13:51; Stop 02/16/17 at 13:52; Status DC Bupivacaine HCl/ Epinephrine Bitart (Sensorcain-Mpf Epi 0.5%-1:[id number]) 30 ml STK -MED ONCE .ROUTE Last administered on 02/16/17 14:39; Start 02/16/17 at 13:51; Stop 02/16/17 at 13:52; Status DC Iohexol (Omnipaque 300 Mg/ml) 50 ml STK-MED ONCE .ROUTE Last administered on 14:39; Start 02/16/17 at 13:51; Stop 02/16/17 at 13:52; Status DC Glucagon (Glucagen) 1 mg STK-MED ONCE .ROUTE ; Start 02/16/17 at 13:51; Stop 02/16 at 13:52; Status DC Fentanyl Citrate (Fentanyl 2ml Vial) 100 mcg STK-MED ONCE .ROUTE ; Start at 14:02; Stop 02/16/17 at 14:03; Status DC Desflurane (Suprane) 90 ml STK-MED ONCE IH ; Start 02/16/17 at 14:06; Stop at 14:07; Status DC Midazolam HCl (Versed) 2 mg STK-MED ONCE .ROUTE ; Start 02/16/17 at 14:25; Stop 02/16/17 at 14:26; Status DC Neostigmine Methylsulfate (Bloxiverz) 10 mg STK-MED ONCE .ROUTE ; Start 02/16/17 at 15:11; Stop 02/16/17 at 15:12; Status DC Glycopyrrolate (Robinul) 1 mg STK-MED ONCE .ROUTE ; Start 02/16/17 at 15:11; Stop 02/16/17 at 15:12; Status DC Ketorolac Tromethamine (Toradol For Or Only) 60 mg STK-MED ONCE .ROUTE ; Start 02/16/17 at 15:27; Stop 02/16/17 at 15:28; Status DC Sevoflurane (Ultane) 60 ml STK-MED ONCE IH ; Start 02/16/17 at 15:27; Stop at 15:28; Status DC Sodium Chloride (Normal Saline Flush) 3 ml QSHIFT PRN IV AFTER MEDS AND BLOOD DRAWS; Start 02/16/17 at 16:00 Dextrose (Dextrose 50%-Water Syringe) 12.5 gm PRN Q15MIN PRN IV SEE COMMENTS; Start 02/16/17 at 16:00 Oxycodone/ Acetaminophen (Percocet 5/325) 1 tab PRN Q4HRS PRN PO MILD PAIN, 1ST CHOICE; Start 02/16/17 at 16:00 Oxycodone/ Acetaminophen (Percocet 5/325) 2 tab PRN Q4HRS PRN PO MODERATE PAIN , SEVERE PAIN; Start 02/16/17 at 16:00 Hydromorphone HCl (Dilaudid) 1 mg PRN Q3HRS PRN IV PAIN; Start 02/16/17 at 16:00 Enoxaparin Sodium (Lovenox 40mg Syringe) 40 mg Q24H SQ ; Start 02/16/17 at 17:00 Active Scripts Active Reported Lovastatin 20 Mg Tablet 1 Tab PO DAILY Levothyroxine Sodium 50 Mcg Tablet 1 Tab PO DAILY Lisinopril 10 Mg Tablet 1 Tab PO DAILY Metformin Hcl 850 Mg Tablet 850 Mg PO BIDWMEALS Vitals/I & O Vital Sign - Last 24 Hours 02/16/17 02/16/17 02/16/17 02/16/17 12:50 15:42 15:42 15:57 Temp 97.5 98.3 97.5 98.3 Pulse 67 91 74 Resp 15 16 16 B/P (MAP) 133/65 123/98 154/67 Pulse Ox 96 100 95 O2 Delivery Room Air Mask Simple Mask Room Air O2 Flow Rate 10 10 02/16/17 02/16/17 02/16/17 02/16/17 16:06 16:12 16:23 16:27 Temp 97.8 97.8 Pulse 60 66 Resp 18 16 16 B/P (MAP) 120/56 144/66 Pulse Ox 100 96 97 O2 Delivery Nasal Cannula Nasal Cannula Nasal Cannula Nasal Cannula O2 Flow Rate 2.0 2 2 2 02/16/17 02/16/17 02/16/17 02/16/17 16:42 19:00 20:00 23:00 Temp 98.1 98.1 98.1 98.1 Pulse 86 68 65 Resp 18 18 B/P (MAP) 138/62 143/68 (93) 139/62 (87) Pulse Ox 97 96 93 O2 Delivery Nasal Cannula Room Air Room Air Room Air O2 Flow Rate 2 02/17/17 02/17/17 02/17/17 03:00 07:00 07:25 Temp 98.1 98.7 98.1 98.7 Pulse 62 63 Resp 18 18 B/P (MAP) 135/59 (84) 126/57 (80) Pulse Ox 98 95 O2 Delivery Room Air Room Air Room Air Intake and Output 02/16/17 02/16/17 02/17/17 15:00 23:00 07:00 Intake Total 50 ml 1480 ml 700 ml Output Total 20 ml Balance 50 ml 1460 ml 700 ml RONNY HUDSON MD Feb 17, 2017 11:54
--- NOTE | 2017-02-17 12:24 | PDOC3 ---
Discharge Summary [facility] Date of Admission: Feb 16, 2017 Discharge Date: Feb 17, 2017 Admitting Diagnosis abd pain with cholelithiasis s/p lab mirian 02/16 dm2 htn hld hypothyroidism tobaccoism elevated LFT post sx 2/2 bile duct spasm? Problems: Final Diagnosis CONSULTS gi sx Brief Hospital Course Patient is a 56 year old female with HTN, dm2, HYPOthyrodism, came to ER for abd pain x1d. pt never had this pain before. She started to have RUQ pain last night, after eating, with N, no vomiting, also had subjective fever, chills, no T checked. BM usually every other day, now has been having loose BM daily x3ds. The pain feels achy, constant, 04/19, no radiation. US showed cholelithiasis. pt underwent lap cholecystectomy on 02/16. now no abd pain, no N/V,. has flatus, but no bm yet. eating ok. higher LFT 2/2 bile duct spasm possibly. gi and sx ok to dc dc home, dc time 35min. General: Alert, Oriented X3, Cooperative, No acute distress Heart: Regular rate Lungs: Clear Abdomen: Normal bowel sounds, Soft, No tenderness, Other (lap dressings dry, incisional TTP) Extremities: No clubbing Skin: No rashes Problems: Disposition home CONDITION AT DISCHARGE: Improved Diet regular , ada Scheduled Levothyroxine Sodium (Levothyroxine Sodium), 1 TAB PO DAILY, (Reported) Lisinopril (Lisinopril), 1 TAB PO DAILY, (Reported) Lovastatin (Lovastatin), 1 TAB PO DAILY, (Reported) Metformin Hcl (Metformin Hcl), 850 MG PO BIDWMEALS, (Reported) Follow Up sx in 2 weeks RONNY HUDSON MD Feb 17, 2017 12:24
[2017-02-17] MEDS ORDERED: LEVOTHYROXINE 50 MCG TABLET PO SCH (13:00)
[2017-02-17] MEDS ORDERED: LISINOPRIL 10 MG TABLET PO SCH (13:00)
[2017-02-17] MEDS ORDERED: metFORMIN 850 MG TABLET PO SCH (17:00)
[2017-02-17] MEDS ORDERED: ATORVASTATIN CALCIUM 10 MG TABLET. PO SCH (21:00)
--- NOTE | 2017-02-18 06:05 | ACF ---
Admission Forms Criteria ABDOMINAL PAIN Clinical Indications for Admission to Inpatient Care ( [place]/check or initial the applicable condition/criteria): Admission is indicated for ANY ONE of the following (1)(2)(3)(4)(5)(6): [ ]I. Surgery needed that cannot be performed on ambulatory basis [ ]II. Peritoneal signs present (eg, rebound tenderness, rigidity) [ ]III. Evaluation requires patient to not eat or drink for extended period ( eg, more than 24 hours). [X ]IV. Inpatient admission required[B] rather than observation care (see Abdominal Pain: Observation Care guideline as appropriate) because of ANY ONE of the following(7)(8)(9): [ ] a) Hemodynamic instability [ ]b) Severe pain requiring acute inpatient management [X ]c) Identification of etiology or finding that requires inpatient care (eg, aortic dissection, free air,bowel ischemia)(10) [ ]d) Absent bowel sounds with complete ileus (11) [ ]e) Signs of intestinal obstruction[C] [ ]f) Suspected toxic meg[place]olon [ ]g) Severe electrolyte abnormalities requiring inpatient care [ ]h) High fever or infection requiring inpatient admission as indicated by ANY ONE of the following (12)(13): [ ]i) Appropriate outpatient or observation care antimicrobial treatment unavailable, not effective, or not feasible [ ]ii) Documented bacteremia [ ]iii) Temperature greater than 104.9 degrees F (40.5 degrees C) (oral) [ ]iv) Temperature greater than 103.1 degrees F (39.5 degrees C) ( oral) or less than 96.8 degrees F (36 degrees C) (rectal) that does not respond to all emergency treatment measures [ ]i) IV fluid required rather than oral rehydration to replace significant ongoing (eg, for greater than 24 hours) losses (greater than 3 L/m2 per day)(14)(15) [ ]j) Percutaneous or open drainage (eg, abscess, biliary tract) procedures [ ]k) Parenteral nutrition regimen that must be implemented on inpatient basis [ ]l) Other condition, treatment, or monitoring requiring inpatient admission Extended stay beyond goal length of stay may be needed for (1)(3)(4)(10)(16): [ ]a) Surgery (e.g., colectomy, revascularization procedure) [ ]b) Persistent abdominal pain with suspected intra-abdominal process [ ]c) Diagnosed condition requiring continued stay (e.g., pancreatitis, complicated diverticulitis) The original [facility] content created by [facility] [place] has been revised. The portions of the content which have been revised are identified through the use of italic text, and [facility] has neither reviewed nor approved the modified material.All other unmodified content is copyright [facility]. Please see references footnoted in the original [facility] edition 2015 Admission Criteria Met?: Yes BALTA MORALES Feb 18, 2017 06:05
--- NOTE | 2017-02-18 14:28 | PATHOLOGY ---
PATHOLOGY REPORT * * * * * * * * FINAL DIAGNOSIS: Gallbladder, laparoscopic cholecystectomy: - Cholelithiasis. - Chronic cholecystitis. COMMENT: There is no evidence of malignancy. (JPM:mgr; 02/18/2017) REPORT ELECTRONICALLY SIGNED BY: Natan Gamble M.D. DATE/TIME: 02/18/2017 14:28 * * * * * * * * GROSS PATHOLOGY: Received in formalin labeled "Kristie Frye, gallbladder and contents," is a 7.7 x 3.6 x 2.0 cm, intact gallbladder with purple hernandez serosal surfaces. Opening the gallbladder reveals dark green velvety mucosa and an average wall thickness of 0.3 cm. Calculi are present and no masses are noted grossly. Cottage [employer] sections from the body and fundus are submitted along with the proximal margin in cassette A1. (JPM; 02/17/17) INITIAL CPT CODE(S): A; 45974 Professional services performed by [facility] [facility] [place] [address] Technical services performed by [facility] at [address] [place] [address]. SPECIMEN(S) RECEIVED: A.Gallbladder and contents CLINICAL HISTORY: Symptomatic cholelithiasis PATIENT: KRISTIE FRYE /AGE: 12 1960 (Age: 56) PATIENT #: [id number] ALT CASE #: SPECIMEN COLLECTION DATE: 02/16/2017 SPECIMEN RECEIVED DATE: 02/17/2017 [facility] - [address] [place] [address] - PHONE: [phone] * * * END OF REPORT * * *
== END 2017-02-17 13:40 | disposition home or self-care (01) | DRG 418 ==
LOC: ER 23:39 → 4 NORTH 02-16 01:47
PROVIDERS: ADMIT Internal Medicine Hematology & Oncology; ATTEND Internal Medicine Hematology & Oncology
PROC: BF131ZZ Fluoroscopy of Gallbladder and Bile Ducts using Low Osmolar Contrast (ICD-10-PCS; 2017-02-16)
PROC: 0FT44ZZ Resection of Gallbladder, Percutaneous Endoscopic Approach (ICD-10-PCS; principal; 2017-02-16 14:00)
DX: K80.20 Calculus of gallbladder without cholecystitis without obstruction (principal); I96 Gangrene, not elsewhere classified; E78.00 Pure hypercholesterolemia, unspecified; E11.9 Type 2 diabetes mellitus without complications; E78.5 Hyperlipidemia, unspecified; F17.210 Nicotine dependence, cigarettes, uncomplicated; E03.9 Hypothyroidism, unspecified; I10 Essential (primary) hypertension; Z80.0 Family history of malignant neoplasm of digestive organs; Z82.49 Family history of ischemic heart disease and other diseases of the circulatory system; Z90.710 Acquired absence of both cervix and uterus
CPT/HCPCS: 36415; 74300; 76705; 80048; 80053; 80076; 81001; 82962; 83690; 85027; 87086; 93005; 96361; 96374; 96375; C1769; J0780; J1100; J1610; J1815; J1885; J2250; J2405; J2543; J2704; J2710; J3010; J3490; J7030; J7120; Q9967; S0028; 99285-25; J2001